=== PATIENT | male | born 1970 | race Caucasian/White ===

== ENCOUNTER 2019-07-03 07:58 | Inpatient (IN) ==
[2019-07-03] MEDS ORDERED: cefTRIAXone 2,000 MG in Water for inj. (sterile) 20 ML IVP SCH (11:00)
[2019-07-03 11:06] LABS: ABG Base Excess 0 mEq/L (-2 to 3); ABG HCO3 27 mEq/L (21-27); ABG Oxygen Saturation 97 % (95-98); ABG PCO2 52 mmHg (35-45); ABG PH 7.32 pH Units (7.32-7.45); ABG PO2 99 mmHg (85-104); ABG TCO2 29 mEq/L (20-26); Blood Gas Modality AF; Blood Gas PEEP 5 cm H2O; Blood Gas VT 500 cc
[2019-07-03] MEDS: FentaNYL (PF) 1,000 MCG in 0.9 % Sodium Chloride 80 ML IVC SCH ×3 (11:13→21:39)
[2019-07-03] MEDS ORDERED: Naloxone 0.4 MG/ML INJ IVP PRN (11:15)
[2019-07-03] MEDS ORDERED: Artificial Tears SOLN 15 ML BOTTLE BOTH EYES PRN (11:15)
[2019-07-03 11:18] LABS: Basophils % 0.3 %; Eosinophils # 0.1 K/mcL (0.0-0.6); Eosinophils % 0.6 %; Hematocrit 46.3 % (37.5-50.1); Hemoglobin 15.7 g/dL (12.9-16.9); Immature Granulocytes % 0.3 % (0-4); Lymphocytes # 2.5 K/mcL (0.6-4.6); Lymphocytes % 22.9 %; Mean Corpuscular HGB Conc 33.9 g/dL (31.6-35.5); Mean Corpuscular Hemoglobin 30.3 pg (28.0-33.3); Mean Corpuscular Volume 89.4 fL (83.0-100.0); Mean Platelet Volume 10.4 fL (9.4-12.4); Monocytes # 0.8 K/mcL (0.0-1.3); Monocytes % 7.7 %; Neutrophils # 7.4 K/mcL (1.6-8.9); Platelet Count 203 K/mcL (140-400); Red Blood Count 5.18 M/mcL (4.19-5.50); Red Cell Distribution Width 13.2 % (11.5-14.5); Segmented Neutrophils % 68.2 %; White Blood Count 10.9 K/mcL (4.3-11.1)
[2019-07-03] MEDS ORDERED: Albuterol 2.5 MG/3 ML NEBULIZER IH PRN (11:22)
[2019-07-03 11:26] LABS: INR 1.1; Prothrombin Time 12.1 Seconds (9.4-12.1)
[2019-07-03 11:28] LABS: Activated Partial Thrombo Time 48.1 Seconds (26.0-36.0)
--- NOTE | 2019-07-03 11:28 | Infectious Disease Consult ---
Infectious Disease-Consult - Encounter Date/Time Date of Encounter: 07/03/19 Time of Encounter: 11:26 - Data of Consult Patient: new to practice Reason for consult: Sepsis, AMS Consult date: 07/03/19 Requesting Physician: Cisco Blanchard Primary Care Provider: PCP NONE - HPI HPI: Mr. Liriano is a 49-year-old male with past medical history of GERD, headache, hypertension, and polysubstance abuse. The patient was admitted to the hospital 07/03/19 for altered mental status. We are consulted 07/03/19 for further workup and treatment recommendation for sepsis and altered mental status. Briefly, the patient is a 49-year-old male with past medical history as stated above. The patient's currently intubated and sedated, therefore, all of the information is obtained from medical record. Apparently, the patient presented to an [facility] emergency department with complaints of altered mental status, agitation, and confusion. Upon arrival, he had a low-grade temp of 100.2. He was tachycardic, tachypneic, and had hypertension. But blood cell count was 13,000 with neutrophilic predominance. Lactic acid and renal function were normal. Urinalysis was negative for pyuria. Urine drug screen was positive for methamphetamines, benzos, and Suboxone. Blood alcohol and acetaminophen levels were normal. Troponin was negative. He had a CT of the head that was negative. The patient became acutely combative and was subsequently intubated. History is reviewed here for further evaluation and treatment. Since admission here, the patient is afebrile and hemodynamically stable. Laboratory studies reveal a normal white blood cell count here. Chest x-ray shows a small left pleural effusion with atelectasis. Repeat blood cultures and additional labs are pending. Currently, he is on vancomycin, Rocephin, and acyclovir. We have been asked to evaluate and make further recommendations. During my exam today, the patient is evaluated in the presence of nursing staff. He is heavily sedated and intubated and is therefore unable to provide me with any information regarding the events leading up to this hospitalization. Review of systems unobtainable. - ROS Review of Systems: Review of systems unobtainable due to the patient's current mental status. - Results CBC & Chem 7: 07/06/19 03:05 07/06/19 03:05 - Exam Exam: Head: Atraumatic, normal inspection, normocephalic. Eye: PERRLA, no scleral icterus noted. No subconjunctival hemorrhage noted. ENT: Mucous membranes moist. No odontogenic infection noted. Neck: Normal inspection, no meningismus. Respiratory: Clear to auscultation. No rales, respiratory distress, rhonchi, or wheezes noted. Cardiovascular: Regular rate and rhythm, S1 and S2 audible. No murmurs, rubs, or gallops. GI: Soft, nondistended, normal bowel sounds. NG tube to low intermittent wall suction. Richard catheter draining clear yellow urine. Extremities:No joint swelling, pedal edema, or tenderness noted. Multiple superficial scabbed lesions noted bilateral lower extremities in various stages of healing. No surrounding erythema, warmth, tenderness, or fluctuance noted. Neurological: Sedated, does not follow commands. Psychiatric: Calm, sedated. Skin: Dry, intact, warm. Normal color. No rashes. No endocarditis stigmata not ed. Allergy/AdvReac Type Severity Reaction Status Date / Time No Known Allergies Allergy Verified 07/03/19 10:28 - Assessment and Plan (1) SIRS (systemic inflammatory response syndrome) Current Visit: Yes Status: Acute The patient had three SIRS criteria with altered mental status at outside hospital. Source: Unclear. Consider non-infectious etiologies (drug use). WBC normal upon arrival to [facility]. Afebrile. Tachycardia resolved. Blood cultures drawn 07/03/19 are pending x 2 sets. SNOMED Code(s): 158667988 (2) Acute encephalopathy Current Visit: Yes Status: Acute Substance abuse vs. other. CT head negative. UDS positive for amphetamines, benzos, and suboxone. SNOMED Code(s): 88055592, 966823988 (3) Polysubstance abuse Current Visit: Yes Status: Acute UDS positive for benzos, amphetamines, and suboxone. Will check HIV, hepatitis B and C serologies. SNOMED Code(s): 597225314 - Recommendations Recommendations: Await blood cultures to finalize. Check HIV and Hepatitis B and C serologies. Check respiratory infectious panel. Await neurology recommendations. Consider LP if meningitis is on the differential, but given that his WBC normalized and fever resolved without antibiotics, bacterial meningitis very low on the differential. Discontinue Vanc, Rocephin, and acyclovir and observe off antibiotics. Past Med Surg Social Fam HX - Past Medical History Source: old records reviewed, nursing notes reviewed Medical history: asthma, GERD, hypertension Additional medical history: IbS, headaches - Past Surgical History Additional surgical history: Bilateral ankle surgery, Hernia repair, colectomy, T/A. - Social History Smoking Status: Smoker, status unknown Drug use: methamphetamine - Family History Mother History Unknown: Yes Father History Unknown: Yes Consult Discharge Plan - Plan Referrals: NONE,PCP [Primary Care Provider] - - Attending Attestation I have personally performed a face to face evaluation on this patient. I have reviewed and agree with the care plan. This is an addendum to original report dictated by Renate Apple CNP. Please refer to Renate's note for full detail. Agree with above history of present illness, review of system and physical exam findings. Assessment and plan: Sepsis likely secondary to drug overdose. Infectious etiology/encephalitis meningitis less likely based on the clinical picture but is really hard to say Acute encephalopathy likely secondary to amphetamines, benzos and Suboxone Polysubstance abuse Recommendations Await blood cultures to finalize. Check HIV and Hepatitis B and C serologies. Check respiratory infectious panel. Await neurology recommendations. Consider LP if meningitis is on the differential, but given that his WBC normal ized and fever resolved without antibiotics, bacterial meningitis very low on the differential. Discontinue Vanc, Rocephin, and acyclovir and observe off antibiotics. Discussed with Dr. Rosario
--- NOTE | 2019-07-03 11:29 | Internal Med History&Physical ---
Date of Encounter: 07/03/19 Time of Encounter: 10:30 Internal Medicine - H&P: HPI Chief complaint: acute encephalopathy; possibe meningitis; NSTEMI Admitted From: Hospital to Hospital Transfer Plans for Post Hospital Care: Home History of present illness: Mr. VITALE is a 49 year old male who presents in direct transfer from [facility] in [place], [place]. I received a call this morning requesting transfer for concerns of possible meningitis, acute encephalopathy, and NSTEMI, all most likely secondary to drugs of abuse. Patient presented there acutely combative, hallucinating, agitated, and encephalopathic according to the ER staff. He had a fever of 100.5 degrees Fahrenheit. Because of concern for possible withdrawal and/or further deterioration, he was intubated in the ER and proceeded to have workup. Workup revealed normal CT of the head per verbal report. He did have an elevated white count of 13,000. Urine drug screen was positive for methamphetamine, benzodiazepines, and Buprenorphine. Cocaine was negative on UDS, however. There was some clinical concern by the ER staff that he may be suffering from meningoencephalitis. I asked them to perform a lumbar puncture, and they said they are unable to do so there because of lack of laboratory support for CSF analysis. They tried to send patient to [facility] but they do not have any Infectious Disease consult on staff. Therefore, a transfer request was made to send patient to [place] for ongoing care. I requested that the ER physician start antibiotics empirically if there was any concern for any meningoencephalitis. Specifically, I requested that she administer a dose of vancomycin, Rocephin 2 g, and acyclovir, all IV and prior to transfer to [place]. Unfortunately, patient arrived here and did not receive any antibiotics whats oever, as per my discussions with the transport team. Per my discussions with the ER staff, he did have blood cultures drawn there. Once he arrived, I ordered some STAT labs and medications, including the above aforementioned antibiotics. He was noted to have significant bloody drainage from his NG tube, and we, therefore, stopped his heparin drip for now until we can further proceed with workup. His initial troponin there was normal at less than 0.056. However, repeat troponin was elevated at 1.3 per my discussions with the ER staff. I did order stat EKG here which was unremarkable and did not show any acute ischemic changes. Currently, patient is sedated and I am unable to obtain any history from him whatsoever. History was obtained from my verbal discussion with the ER staff at [facility] and limited transport records they sent. Furthermore, the history was obtained from transport team as well, where they confirmed for me that he did not receive any antibiotics prior to transfer. Past Med Surg Social Fam HX - Past Medical History Source: other (limited [facility] records) Medical history: COPD, hypertension Psychiatric history: other (suspected but unknown) - Past Surgical History Additional surgical history: unkown, but he has visible old scars along his lower abdomen, neck, face - Social History Smoking Status: Unknown if ever smoked Alcohol use: unknown Drug use: IV Drug Use - Family History Mother History Unknown: Yes Father History Unknown: Yes Internal Medicine - H&P: Meds Allergy/AdvReac Type Severity Reaction Status Date / Time No Known Allergies Allergy Verified 07/03/19 10:28 ROS unobtainable: due to endotracheal tube - Constitutional Exam: intubated, sedated - Head Head exam: Present: atraumatic, normal inspection Additional comments: old scars along neck/face - Eye Eye exam: Present: PERRL. Absent: scleral icterus - ENT ENT exam: Present: mucous membranes dry, normal exam, normal oropharynx Additional comments: ETT/NG in place - Neck Neck exam general surgery: Present: full ROM, supple, trachea midline. Absent: tenderness, nuchal rigidity, thyromegaly - Respiratory Respiratory exam: Present: prolonged expiratory phase, rhonchi, wheezes. Ab sent: accessory muscle use, chest wall tenderness, rales, respiratory distress - Cardiovascular Cardiovascular exam: Present: RRR, +S1, +S2. Absent: diastolic murmur, systolic murmur - GI/Abdominal GI/Abdominal exam: Present: normal bowel sounds, soft. Absent: guarding, hepatomegaly, mass, rebound, splenomegaly, tenderness - Extremities Exam Extremities exam: Present: full ROM, normal capillary refill, warm, radial pulses palpable and symmetrical. Absent: calf tenderness, pedal edema, tenderness - Back Exam Back exam: Absent: rash noted - Neurological Exam Additional comments: sedated, responds to pain - Psychiatric Additional comments: unable to assess due to sedation - Skin Skin exam: Present: dry, warm Additional comments: multiple scab/ulcer wounds throughout extremities and some on trunk (?skin pooping) Internal Med - H&P Results - Labs CBC & Chem 7: 07/03/19 11:00 07/03/19 11:00 Labs: Short CBC 07/03/19 Range/Units 11:00 WBC 10.9 (4.3-11.1) K/mcL Hgb 15.7 (12.9-16.9) g/dL Hct 46.3 (37.5-50.1) % Plt Count 203 (140-400) K/mcL Neutrophils # 7.4 (1.6-8.9) K/mcL I reviewed the labs from [facility] and include the following: WBC 13.2 Hemobin 17.1 Hematocrit 49.9 Platelets 263 Sodium 142 Potassium 3.4 Chloride 103 Carbon dioxide 23 BUN 11 Gluocse 192 Creatinine 1.22 Salicylates less than 2.8 UDS positive for amphetamines, benzodiazepines, and Buprenorphine. Troponin negative, second one was 1.35 - ABG Interpretation ABG results: 07/03/19 11:00 ABG pH 7.32 ABG pCO2 52 H ABG pO2 99 ABG HCO3 27 ABG Total CO2 29 H ABG O2 Saturation 97 ABG Base Excess 0 - EKG Data -: EKG Interpreted by Myself - EKG Data Prior EKG available for review: no EKG comments: 07/03/19 11:57 STAT EKG here at [place]: no acute ischemic changes noted - Impressions ITS Impressions Chest X-Ray 07/03/19 11:10 IMPRESSION: 1. The endotracheal tube tip is located 8.4 cm above the ronda. This could be advanced approximately 3 cm for more optimal placement. 2. The NG tube tip and side port are noted in the gastric fundus. 3. Small left pleural effusion with associated left basilar atelectasis. D/ / Johnny Kinsey MD / Johnny Kinsey MD Interpreting Provider: Johnny Kinsey MD - Assessment and Plan (1) Acute encephalopathy Current Visit: Yes Status: Acute Assessment and plan: 1. Currently intubated and sedated. 2. Consult pulmonology for vent management assistance. 3. Likely due to polysubtance abuse. 4. Low suspicion for meningoencephalitis; will consult anesthesia, neurology, and/or IR for LP. 5. Vancomycin, Rocephin, and Acyclovir administered per pharmacy upon arrival to ICU. 6. Repeat UDS ordered upon arrival. (2) Meningoencephalitis Current Visit: Yes Status: Suspected Assessment and plan: 1. Consult for LP as above. 2. Antibiotics and Acyclovir already administered upon arrival to ICU. 3. Consult ID +/- neurology. (3) IVDU (intravenous drug user) Current Visit: Yes Status: Acute Assessment and plan: 1. Repeat UDS. 2. Supportive measures with vent and current sedation. 3. Monitor for withdrawal. (4) Non-ST elevation NM (NSTEMI) Current Visit: Yes Status: Acute Assessment and plan: 1. Likely due to drugs of abuse. 2. STAT ECHO ordered; EKG here negative for ischemia thus far. 3. Heparin and ASA initiated at [facility]; heparin stopped upon arrival due to bloody drainage from NG tube. 4. Trend troponins, EKG's. 5. Consult cardiology. 6. Avoid BB for concerns of cocaine abuse and other drugs that may lead to unopposed alpha agonist activity. (5) Multiple wounds of skin Current Visit: Yes Status: Acute Assessment and plan: 1. Likely due to skin popping and/or skin abscess from IVDA; clinical concern for MRSA. 2. MRSA precautions. 3. MRSA screen and wound culture ordered. 4. Antibiotics as above. (6) DVT prophylaxis Current Visit: Yes Status: Acute Assessment and plan: 1. EPCD's.
[2019-07-03 11:39] LABS: Alanine Aminotransferase 46 Units/L (7-52); Albumin 4.1 g/dL (3.5-5.7); Albumin/Globulin Ratio 1.3 (1.1-2.2); Alkaline Phosphatase 59 Units/L (34-104); Aspartate Amino Transferase 52 Units/L (13-39); BUN/Creatinine Ratio 13 (6-26); Bilirubin,Direct 0.3 mg/dL (0.0-0.2); Bilirubin,Indirect 0.4 mg/dL (0.0-1.2); Bilirubin,Total 0.7 mg/dL (0.3-1.0); Blood Urea Nitrogen 11 mg/dL (6-20); Calcium 8.8 mg/dL (8.6-10.3); Carbon Dioxide 29 mEq/L (23-29); Chloride 107 mEq/L (98-107); Globulin 3.1 g/dL (2.4-3.5); Glucose 122 mg/dL (70-105); Osmolality,Calculated 295 (280-300); Potassium 3.8 mEq/L (3.5-5.1); Sodium 142 mEq/L (136-145); Total Protein 7.2 g/dL (6.4-8.9); Troponin I 0.68 ng/mL (< 0.04); eGFR For African Americans > 60 (> 60); eGFR For Non-African Americans > 60 (> 60)
--- NOTE | 2019-07-03 11:39 | Pulmonology Consult Note ---
<Serafin Cross W - Last Filed: 07/03/19 13:04> Date of Encounter: 07/03/19 Medications and Allergies Allergy/AdvReac Type Severity Reaction Status Date / Time No Known Allergies Allergy Verified 07/03/19 10:28 All Systems: The remainder of the systems were reviewed and are negative Physical Examination Vital Signs: Vital Signs, Last 4 Hours Temp Pulse Resp BP Pulse Ox 07/03/19 11:00 98.2 F 85 16 146/108 99 07/03/19 10:36 98.2 F 85 16 146/108 99 Ventilator Settings Ventilator Settings: Ventilator Settings, Last 8 Hours Ventilator Tidal Volume 500 Setting Ventilator Respiratory Rate 16 Setting Actual Respiratory Rate 16 Positive End Expiratory 5 Pressure Peak Inspiratory Airway 18 Pressure Results - Laboratory Findings CBC and BMP: 07/03/19 11:00 07/03/19 11:00 ABG ABG pH 7.32 pH Units (7.32-7.45) 07/03/19 11:00 ABG pCO2 52 mmHg (35-45) H 07/03/19 11:00 ABG pO2 99 mmHg (85-104) 07/03/19 11:00 ABG O2 Saturation 97 % (95-98) 07/03/19 11:00 PT/INR, D-dimer PT 12.1 Seconds (9.4-12.1) 07/03/19 11:00 Abnormal lab findings: Abnormal lab results APTT 48.1 Seconds (26.0-36.0) H 07/03/19 11:00 ABG pCO2 52 mmHg (35-45) H 07/03/19 11:00 ABG Total CO2 29 mEq/L (20-26) H 07/03/19 11:00 Glucose 122 mg/dL (70-105) H 07/03/19 11:00 Direct Bilirubin 0.3 mg/dL (0.0-0.2) H 07/03/19 11:00 AST 52 Units/L (13-39) H 07/03/19 11:00 Troponin I 0.68 ng/mL (< 0.04) H* 07/03/19 11:00 - Microbiology Findings Microbiology Findings: Microbiology, Last 48 Hours 07/03/19 11:00 Blood Culture - Preliminary Peripheral Venipuncture Culture is incubating and being continuously monitored for growth. Final report to follow. 07/03/19 11:00 Blood Culture - Preliminary Peripheral Venipuncture Culture is incubating and being continuously monitored for growth. Final report to follow. - Clinical Findings Intake & Output: Intake & Output 07/02/19 07/03/19 07/03/19 23:59 07:59 15:59 Intake Total 385 / 385 Output Total 400 / 400 Balance - Weight 99.3 kg Consult Discharge Plan - Plan Referrals: NONE,PCP [Primary Care Provider] - - Attending Attestation I examined this patient and my medical decision-making was reviewed with the Resident Physician. I agree with the documented findings, disposition and treatment plan as described except to the extent set forth below. We indep endently had [id number] contact with the patient Patient seen and examined at bedside Labs, radiology, chart personally reviewed. History was gathered entirely from the medical record as well as conversation dramatically with the admitting hospitalist Dr Mccracken - I did attempt to call the next of kin the patient's father but was directed to voice mail PHYSICAL METALLURGIST: Patient presenting with toxic encephalopathy which is consistent with intentional toxidrome from polydrug overdose. He is afebrile at this time. I believe that the likelihood of meningitis is very low he has been covered empirically with antibiotics formal neurology consultation could be helpful. I do recommend checking acetaminophen and salicylate levels Pulm: Patient had been intubated because of amount of sedation required to keep patient call and he has a mild respiratory acidosis-increased his minute ventilation to accommodate for this he will need to be sedated today because he is not a candidate for spontaneous regional because of acute intoxication Cards: NSTEMI likely demand in the context of methamphetamine use for recommend echocardiogram to assess for any regional wall motion abnormalities. GI: GI prophylaxis should be given while on vent Nutrition: Nothing by mouth for now Renal: No evidence of acute kidney injury but would check CPK levels to rule out any evidence of rhabdomyolysis on physical examination there is no evidence of compartment syndrome of any of the extremities. UOP Monitored, Cont to Trend sCr and monitor Electrolytes. ID: There is concern for encephalitis given acute encephalopathy as well as mild fever and the outside emergency department which I think is much were reasonably explained by drug intoxication he has been covered empirically for meningitis which I suspect can be stopped Heme/Onc: DVT prophylaxis to be given Endo: Glucose Monitored Integ/MSK: Skin Care per routine ICU Nursing Protocol to prevent ulcers. Lines: All lines examined without evidence of infection : Dispo: Monitor in ICU CODE: Full <Phillip Hernández - Last Filed: 07/03/19 13:51> Date of Encounter: 07/03/19 Time of Encounter: 11:37 Assessment and Plan (1) Acute encephalopathy Current Visit: Yes Status: Acute Patient was found to be aggressive and agitated upon arrival at [facility] Due to level of agitation and concerns for withdrawals patient was intubated and sedated Agitation likely due to polysubstance abuse with a low suspicion of meningitis as patient no longer has fever and white count is not elevated -Currently intubated and sedated -Vancomycin, Rocephin, and acyclovir therapy for possible meningitis -Neurology consulted (2) Polysubstance abuse Current Visit: Yes Status: Acute Urine drug screen positive for benzodiazepines, methamphetamine, and Suboxone Most likely could be cause of patient's acute encephalopathy -Patient currently sedated and intubated -We will monitor for signs of withdrawal and initiate CIWA-B protocol if needed (3) Non-ST elevation FL (NSTEMI) Current Visit: Yes Status: Acute Patient with reported elevated troponins at [facility] Most likely due to demand ischemia in setting of polysubstance abuse and acute agitation/restraints at [facility] Troponin of 0.68 with repeat 2 hours later of 0.65 -Continue to trend -Echo ordered -Cardiology consulted (4) Multiple wounds of skin Current Visit: Yes Status: Acute Action with multiple small scabbing wounds over the lower and upper extremities -MRSA screening initiated -Blood cultures pending -Currently on vancomycin (5) DVT prophylaxis Current Visit: Yes Status: Acute SCDs History of Present Illness Consult date: 07/03/19 History of present illness: 49M with significant pmh of COPD, drug abuse and HTN presented as a direct admit from [facility] ER due to possible meningitis, acute encephalopathy, and NSTEMI. According to ER staff at [facility] patient presented very combative, hallucinating, and agitated with a fever. Patient was intubated at that time due to agitation and fear of possible withdrawals. Urine drug screen at [facility] with positive methamphetamine, benzodiazepines, and Suboxone. Patient was transferred due to possible signs of meningitis and inability to get CSF analysis at that location. After presenting to the ICU patient was started on vancomycin, Rocephin, and acyclovir. Patient lab results significant for a normal white count, and significant CMP, and a troponin of 0.68 in the setting of drug abuse and combative activity. CK ordered will follow for results. Vital signs on admission of temperature 98.2, pulse rate of 85, respiratory rate is 16, blood pressure 146/108, and O2 saturation of 99% on vent. Vent settings of FiO2 40%, tidal volume 500, PEEP of 5, and respiratory rate of 16. Patient continues to be sedated on propofol, fentanyl, and the diazepam at this time. Past Med Surg Social Fam HX - Past Medical History Medical history: asthma, GERD, hypertension Additional medical history: IbS, headaches - Past Surgical History Additional surgical history: Bilateral ankle surgery, Hernia repair, colectomy, T/A. - Social History Smoking Status: Smoker, status unknown Drug use: methamphetamine - Family History Mother History Unknown: Yes Father History Unknown: Yes ROS unobtainable: due to endotracheal tube All Systems: The remainder of the systems were reviewed and are negative Physical Examination General appearance: other (ET tube in place patient is sedated.) Eyes: nonicteric ENT: other (ET tube in place) Neck: no lymphadenopathy, no JVD Effort: normal Inspection: normal Auscultation: bilateral: clear Cardiovascular: regular rate and rhythm Gastrointestinal: normoactive bowel sounds, soft, non-distended Integumentary: other (Multiple small lesions are present on the bilateral lower and upper extremities. nonbleeding and scabbing present) Extremities: no edema, pulses normal Musculoskeletal: no deformities unable to assess due to mental status Results - Laboratory Findings CBC and BMP: 07/03/19 11:00 07/03/19 11:00 ABG ABG pH 7.32 pH Units (7.32-7.45) 07/03/19 11:00 ABG pCO2 52 mmHg (35-45) H 07/03/19 11:00 ABG pO2 99 mmHg (85-104) 07/03/19 11:00 ABG O2 Saturation 97 % (95-98) 07/03/19 11:00 PT/INR, D-dimer PT 12.1 Seconds (9.4-12.1) 07/03/19 11:00 Abnormal lab findings: Abnormal lab results APTT 48.1 Seconds (26.0-36.0) H 07/03/19 11:00 ABG pCO2 52 mmHg (35-45) H 07/03/19 11:00 ABG Total CO2 29 mEq/L (20-26) H 07/03/19 11:00 - Clinical Findings Intake & Output: Intake & Output 07/02/19 07/03/19 07/03/19 23:59 07:59 15:59 Weight 99.3 kg
[2019-07-03] MEDS: Ipratropium/Albuterol Neb 3 ML IH SCH ×4 (11:59→23:56)
[2019-07-03] MEDS ORDERED: Acyclovir 750 MG in D5% in Water 250 ML IVPB SCH (12:00)
[2019-07-03] MEDS ORDERED: Perflutren Lipid Microsphere 1.3 ML in 0.9 % Sodium Chloride 8.7 ML IVP ONE (12:00)
[2019-07-03] MEDS ORDERED: Perflutren Lipid Microsphere 2 ML VIAL ONE (12:05)
[2019-07-03] MEDS: Artificial Tears SOLN 15 ML BOTTLE BOTH EYES SCH ×4 (12:25→23:03)
[2019-07-03] MEDS: 0.9 % Sodium Chloride 1,000 ML IVC SCH ×2 (12:25→21:45)
--- NOTE | 2019-07-03 12:46 | Cardiology Consult Note ---
Date of Encounter: 07/03/19 Time of Encounter: 13:22 Assessment and Plan (1) Non-ST elevation PA (NSTEMI) Current Visit: Yes Status: Acute Patient has had elevated troponins at 0.056 > 1.35 > 0.68. Electrocardiogram was unremarkable for acute ischemic changes. UDS was negative for cocaine but positive for methamphetamines, benzodiazepines, buprenorphine. -We will not add any medications at this time -We will await results of echocardiogram. -Continue to support hemodynamically. -Continue to provide respiratory support. -Continue to hold heparin for now, due to sanguinous drainage from NG tube. Discussion w patient/family: The assessment and plan as outlined above was discussed with the patient and/or family members who expressed understanding and agreement. All questions were answered. Thank you for involving us in the care of your patient. Please call with any questions. History of Present Illness Consult date: 07/03/19 Requesting physician: Cisco Blanchard Consult reason: NSTEMI, IVDA Chief complaint: acute encephalopathy, NSTEMI History of present illness: Mr. VITALE is a 49 year old male presenting as direct transfer from [facility] for NSTEMI in context of possible meningitis, acute encephalopathy and IV drug abuse. Patient arrived to [facility] very combative, hallucinating, agitated, and encephalopathic. He had elevated temperature of 100.5 F. He is currently intubated. At ED, there was normal CT head reported from [facility]. CXR was unremarkable from cardiac standpoint. There was a small left pleural effusion with associated left basilar atelectasis. UDS was positive for methamphetamine, benzodiazepines, and buprenorphine. Troponin at [facility] was 0.056 > 1.34. Repeat troponin here was 0.68. ECG was unremarkable without acute ischemic changes. Heparin drip is currently held due to bloody drainage from NG tube. Currently on vancomycin, ceftriaxone, and acyclovir. No antiarrhythmics or antihypertensive agents currently being administered. Patient was unable to cooperate with exam due to sedation and intubation. No family was present in room. Echocardiogram is ordered. Repeat ECG is ordered. Blood, sputum, wound cultures pending. Infectious Disease, Neurology, and Pulmonology are also consulted. Past Med Surg Social Fam HX - Past Medical History Medical history: COPD, hypertension Additional medical history: IbS, headaches Psychiatric history: other (suspected but unknown) - Past Surgical History Additional surgical history: unkown, but he has visible old scars along his lower abdomen, neck, face - Social History Smoking Status: Unknown if ever smoked Alcohol use: unknown Drug use: IV Drug Use - Family History Mother History Unknown: Yes Father History Unknown: Yes Medications and Allergies Allergy/AdvReac Type Severity Reaction Status Date / Time No Known Allergies Allergy Verified 07/03/19 10:28 ROS unobtainable: due to endotracheal tube All Systems Review: The remainder of the systems were reviewed and are negative Physical Examination Vital Signs, Last 4 Hours Temp Pulse Resp BP Pulse Ox 07/03/19 11:00 98.2 F 85 16 146/108 99 07/03/19 10:36 98.2 F 85 16 146/108 99 Other: GENERAL: sedated, intubated. Did not awake to voice or physical stimuli SKIN: multiple small scabs over extremities and trunk, multiple tattoos present HENT: normocephalic, atraumatic. ETT in place. NG tube shows sanguinous drainage. Moist mucosa EYES: conjunctival injection present L>R. Anicteric. Pupils equal and reactive to light bilaterally NECK: normal carotid pulses present CV: regular rate and rhythm, no murmurs present. RESPIRATORY: clear to auscultation bilaterally. Ventilated breath sounds. No wheezes, rhonchi, rales heard. GI: soft, nondistended. Normal bowel sounds present EXTREMITIES: peripheral pulses 2+/4. Nonedematous. Acyanotic. Warm, dry. Capillary refill <2 sec Results 07/03/19 11:00 07/03/19 11:00 Lab Results 07/03/19 07/03/19 07/03/19 11:00 11:00 11:00 WBC 10.9 Hgb 15.7 Hct 46.3 Plt Count 203 INR 1.1 APTT 48.1 H Sodium 142 Potassium 3.8 Chloride 107 Carbon Dioxide 29 BUN 11 Creatinine 0.84 Glucose 122 H Calcium 8.8 Total Bilirubin 0.7 AST 52 H ALT 46 Alkaline Phosphatase 59 Troponin I 0.68 H* Consult Discharge Plan - Plan Referrals: NONE,PCP [Primary Care Provider] -
--- NOTE | 2019-07-03 13:39 | Neurology - Consult Note ---
Date of Encounter: 07/03/19 Time of Encounter: 13:30 Assessment and Plan (1) Acute encephalopathy Current Visit: Yes Status: Acute Acute Encephalopathy Most likely 2/2 polysubstance abuse but meningitis and/or infection also in the differential Known polysubstance abuse hx; UDS + meth, BZD's and suboxone But also had SIRS criteria x3 at outside hospital with fevers, leukocytosis and tachycardia -sputum and blood cultures pending; ID seeing in c/s and recommending d/c of ABX with low suspicion for MAINTENANCE MECHANIC infection; we recommend continuing Acyclovir for now. -not recommending LP at this time. Should leukocytosis, and/or fevers return, seizures develop or should decompensation occur then consider LP -otherwise continue with medical and supportive care -neurology will continue to follow; no further recommendations at this time History of Present Illness Chief complaint: AMS HPI: Mr. VITALE is a 49 year old male with a PMH of COPD, HTN, and polysubstance abuse who presents to [facility] from [facility] for concerns for a MAINTENANCE MECHANIC infection as [facility] is unable to perform LP and/or perform CSF analysis. The patient is intubated and sedated at the time of my assessment. He is unable to provide any history as such, so all information was obtained from chart review and provider to provider report. It is reported that the patient was at home and developed an acute episode of hallucinations, delirium and combative behavior prompting evaluation at [facility] ED. While in the ED he had 3 SIRS criteria with tachycardia, fevers of 100.5 and leukocytosis of wbc of 13,000. A UDS was ob tained while there and was positive for methamphetamines, suboxone, and BZD's. Since arriving to [facility] the leukocytosis has resolved and he is afebrile. It should be noted that he had not received any ABX or antiviral tx prior to arrival at [facility]. CT head from [facility] negative for acute intracranial abnormality. The neurological evaluation is limited by patients current state. Past Med Surg Social Fam HX - Past Medical History Medical history: COPD, hypertension Additional medical history: IbS, headaches Psychiatric history: other (suspected but unknown) - Past Surgical History Additional surgical history: unkown, but he has visible old scars along his lower abdomen, neck, face - Social History Smoking Status: Unknown if ever smoked Alcohol use: unknown Drug use: IV Drug Use - Family History Mother History Unknown: Yes Father History Unknown: Yes Medications and Allergies Allergy/AdvReac Type Severity Reaction Status Date / Time No Known Allergies Allergy Verified 07/03/19 10:28 ROS unobtainable: due to endotracheal tube, due to mental status All Systems: The remainder of the systems were reviewed and are negative Physical Examination - Vital Signs Vital Signs: Initial Vital Signs Temp Pulse Resp BP Pulse Ox 98.2 F 85 16 146/108 99 07/03/19 10:36 07/03/19 10:36 07/03/19 10:36 07/03/19 10:36 07/03/19 10:36 - Exam Exam: Examination: Limited by patients altered mental state General Examination: *CONSTITUTIONAL: sedated and intubated *GENERAL APPEARANCE OF PATIENT appears older than stated age and unhealthy *EYES: pupils equal, round, reactive to light and accommodation, conjunctiva clear without masses or ulcerations, fundi normal. *CARDIOVASCULAR: RRR, no peripheral edema, distal temperature normal, dorsalis pedis pulses normal. Refer to vital signs * MUSCULOSKELETAL: *GAIT AND STATION: Deferred *ASSESSMENT OF MUSCLE STRENGTH IN THE UPPER AND LOWER EXTREMITIES unable to illicit any movement during exam Neurological: *ORIENTATION sedated *LANGUAGE AND FUNCTION no significant aphasia or dysarthia was noted. *MENTAL attention span and concentration normal. *CN II optic fundi were normal, no papilledema noted. *CN III,IV, Pupils are sluggish but are equal, round and reactive to light and accommodation *CN VII shows normal facial movement symmetrically, upper and lower bilaterally *REFLEXES: deep tendon reflexes were diminisheddiffusely, no pathological reflexes were noted. Results - Laboratory Findings CBC and BMP: 07/03/19 11:00 07/03/19 11:00 Abnormal lab findings: Abnormal lab results APTT 48.1 Seconds (26.0-36.0) H 07/03/19 11:00 ABG pCO2 52 mmHg (35-45) H 07/03/19 11:00 ABG Total CO2 29 mEq/L (20-26) H 07/03/19 11:00 Glucose 122 mg/dL (70-105) H 07/03/19 11:00 Lactic Acid < 0.2 mmol/L (0.5-2.2) L 07/03/19 12:43 Direct Bilirubin 0.3 mg/dL (0.0-0.2) H 07/03/19 11:00 AST 52 Units/L (13-39) H 07/03/19 11:00 Troponin I 0.68 ng/mL (< 0.04) H* 07/03/19 11:00 Consult Discharge Plan - Plan Referrals: NONE,PCP [Primary Care Provider] -
[2019-07-03 14:01] LABS: Acetaminophen < 10 mcg/mL (10-20); Salicylate < 2.5 mg/dL (15.0-30.0)
--- NOTE | 2019-07-03 14:02 | Electrocardiograph Report ---
[address] [address] Test Date: 2019-07-03 Pat Name: APRIL VITALE Department: 109 Room: 02 Gender: M Tail Ripper: [facility] : 1970 Requested By: Cisco Blanchard Order Number: [id number] Reading MD: Filippo Laws Measurements Intervals [place] Rate: 88 P: 11 [place]: 171 QRS: -2 QRSD: 101 T: 19 QT: 377 QTc: 423 Interpretive Statements SINUS RHYTHM Electronically Signed On 07-03-2019 14:00:50 EDT by Filippo Laws
[2019-07-03 15:47] LABS: Hepatitis B Surface Antigen Nonreactive (Nonreactive)
[2019-07-03] MEDS ORDERED: 0.9 % Sodium Chloride 1,000 ML IVC ONE (16:12)
[2019-07-03 16:17] LABS: HIV-1&2 Antibody & p24 Ag Nonreactive (Nonreactive)
[2019-07-03 16:19] LABS: Hepatitis A Antibody IgM Nonreactive (Nonreactive); Hepatitis B Core IgM Nonreactive (Nonreactive)
[2019-07-03 16:44] LABS: Bilirubin,Urine Negative (Negative); Blood,Urine Negative (Negative); Clarity,Urine Cloudy (Clear); Color,Urine Yellow (Yellow); Glucose,Urine (UA) Normal (Normal); Ketones,Urine Negative (Negative); Leukocyte Esterase,Urine Negative (Negative); Nitrite,Urine Negative (Negative); Protein,Urine Negative (Neg-Trace); Specific Gravity,Urine 1.017 (1.010-1.025); Urobilinogen,Urine Normal (Normal)
[2019-07-03 16:45] LABS: Bacteria,Urine None Seen per hpf (None-Few); Hyaline Casts,Urine None Seen per lpf (None-Few); Squamous Epithelial Cell,Urine Few per lpf (None-Few); WBC,Urine 0-3 per hpf (0-3)
[2019-07-03 16:58] LABS: Amphetamine Screen,Urine Positive ng/mL (Cutoff=1000); Barbiturate Screen,Urine Negative ng/mL (Cutoff=200); Benzodiazepines Screen,Urine Positive ng/mL (Cutoff=200); Cannabinoid Screen,Urine Negative ng/mL (Cutoff = 50); Cocaine Screen,Urine Negative ng/mL (Cutoff= 300); Opiate Screen,Urine Negative ng/mL (Cutoff=300); Phencyclidine Screen,Urine Negative ng/mL (Cutoff=25)
[2019-07-03 18:11] LABS: Hepatitis C Virus Antibody Reactive (Nonreactive)
[2019-07-03 18:57] LABS: Adenovirus Not Detected (Not Detect); Bordetella Pertussis Not Detected (Not Detect); Chlamydophila pneumoniae Not Detected (Not Detect); Coronavirus 229E Not Detected (Not Detect); Coronavirus HKU1 Not Detected (Not Detect); Coronavirus NL63 Not Detected (Not Detect); Coronavirus OC43 Not Detected (Not Detect); Human Metapneumovirus Not Detected (Not Detect); Human Rhinovirus/Enterovirus Not Detected (Not Detect); Influenza A Subtype 2009 H1 Not Detected (Not Detect); Influenza A Untypeable Not Detected (Not Detect); Influenza B Not Detected (Not Detect); Mycoplasma pneumoniae Not Detected (Not Detect); Parainfluenza Virus 1 Not Detected (Not Detect); Parainfluenza Virus 2 Not Detected (Not Detect); Parainfluenza Virus 3 Not Detected (Not Detect); Parainfluenza Virus 4 Not Detected (Not Detect); Respiratory Syncytial Virus Not Detected (Not Detect)
[2019-07-03] MEDS: Chlorhexidine Rinse 15 ML MOUTHWASH MM SCH (21:08)
[2019-07-04] MEDS: 0.9 % Sodium Chloride 1,000 ML IVC SCH ×3 (01:22→21:38)
[2019-07-04] MEDS: FentaNYL (PF) 1,000 MCG in 0.9 % Sodium Chloride 80 ML IVC SCH ×5 (02:09→22:25)
[2019-07-04] MEDS: Artificial Tears SOLN 15 ML BOTTLE BOTH EYES SCH ×6 (03:16→23:00)
[2019-07-04] MEDS: Ipratropium/Albuterol Neb 3 ML IH SCH ×6 (03:42→23:03)
[2019-07-04 03:45] LABS: Alanine Aminotransferase 36 Units/L (7-52); Albumin 3.2 g/dL (3.5-5.7); Albumin/Globulin Ratio 1.2 (1.1-2.2); Alkaline Phosphatase 47 Units/L (34-104); Aspartate Amino Transferase 44 Units/L (13-39); BUN/Creatinine Ratio 9 (6-26); Bilirubin,Direct 0.2 mg/dL (0.0-0.2); Bilirubin,Indirect 0.3 mg/dL (0.0-1.2); Bilirubin,Total 0.5 mg/dL (0.3-1.0); Blood Urea Nitrogen 11 mg/dL (6-20); Calcium 7.7 mg/dL (8.6-10.3); Carbon Dioxide 21 mEq/L (23-29); Chloride 112 mEq/L (98-107); Globulin 2.7 g/dL (2.4-3.5); Glucose 107 mg/dL (70-105); Magnesium 1.8 mg/dL (1.6-2.6); Osmolality,Calculated 296 (280-300); Potassium 3.6 mEq/L (3.5-5.1); Sodium 143 mEq/L (136-145); Total Protein 5.9 g/dL (6.4-8.9); eGFR For African Americans > 60 (> 60); eGFR For Non-African Americans > 60 (> 60)
[2019-07-04 03:53] LABS: Basophils % 0.3 %; Eosinophils # 0.2 K/mcL (0.0-0.6); Eosinophils % 1.7 %; Immature Granulocytes % 0.3 % (0-4); Lymphocytes # 1.7 K/mcL (0.6-4.6); Lymphocytes % 12.9 %; Mean Corpuscular HGB Conc 32.9 g/dL (31.6-35.5); Mean Corpuscular Hemoglobin 30.1 pg (28.0-33.3); Mean Corpuscular Volume 91.5 fL (83.0-100.0); Mean Platelet Volume 10.6 fL (9.4-12.4); Monocytes % 7.2 %; Neutrophils # 10.5 K/mcL (1.6-8.9); Platelet Count 180 K/mcL (140-400); Red Blood Count 4.48 M/mcL (4.19-5.50); Red Cell Distribution Width 13.6 % (11.5-14.5); Segmented Neutrophils % 77.6 %; White Blood Count 13.5 K/mcL (4.3-11.1)
[2019-07-04 03:54] LABS: Hemoglobin 13.5 g/dL (12.9-16.9)
[2019-07-04 05:16] LABS: ABG Base Excess -1 mEq/L (-2 to 3); ABG HCO3 26 mEq/L (21-27); ABG Oxygen Saturation 96 % (95-98); ABG PCO2 50 mmHg (35-45); ABG PH 7.32 pH Units (7.32-7.45); ABG PO2 91 mmHg (85-104); ABG TCO2 27 mEq/L (20-26); Blood Gas Modality ASSIST CONTROL; Blood Gas PEEP 5 cm H2O; Blood Gas VT 500 cc
--- NOTE | 2019-07-04 08:21 | Pulmonology Progress Note ---
<Phillip Hernández - Last Filed: 07/04/19 09:11> Date of Encounter: 07/04/19 Time of Encounter: 08:20 Assessment and Plan (1) Acute encephalopathy Current Visit: Yes Status: Acute Patient was found to be aggressive and agitated upon arrival at [facility] Due to level of agitation and concerns for withdrawals patient was intubated and sedated Agitation likely due to polysubstance abuse with a low suspicion of meningitis as patient no longer has fever and white count is not elevated Patient with elevated WBC at 13.5, diaphoretic, and with a fever of 101 this morning Chest x-ray with blunting of the left costophrenic angle in setting of patient who had recent intubation could demonstrate aspiration pneumonia -ID consulted, will follow recommendations, patient started on Zosyn to cover anaerobic bacteria -Due to signs of infection opiate be performed today, will reinitiate antibiotics if results demonstrate meningitis -Currently intubated and sedated -Neurology consulted (2) Polysubstance abuse Current Visit: Yes Status: Acute Urine drug screen positive for benzodiazepines, methamphetamine, and Suboxone Most likely could be cause of patient's acute encephalopathy -Patient currently sedated and intubated -We will monitor for signs of withdrawal and initiate CIWA-B protocol if needed (3) Non-ST elevation AR (NSTEMI) Current Visit: Yes Status: Acute Patient with reported elevated troponins at [facility] Most likely due to demand ischemia in setting of polysubstance abuse and acute agitation/restraints at [facility] Troponin of 0.68 with repeat 2 hours later of 0.65 Echo with Ef of 65% and no wall segment motion abnormalities -Troponin downtrending with latest of 0.33 -Cardiology consulted will follow recommendations (4) Multiple wounds of skin Current Visit: Yes Status: Acute Action with multiple small scabbing wounds over the lower and upper extremities -MRSA screening positive. Patient currently on a meningitis precautions -Blood and wound cultures pending -Currently on vancomycin (5) DVT prophylaxis Current Visit: Yes Status: Acute SCDs Subjective Interval history: Patient intubated and sedated Objective PUL Vital signs: Last Vital Signs Temp 101 F H 07/04/19 07:37 Pulse 97 07/04/19 06:00 Resp 16 07/04/19 07:16 BP 91/62 07/04/19 06:00 Pulse Ox 93 09/17/19 07:16 General appearance: other (Intubated and sedated) Eyes: nonicteric ENT: other (ET tube in place) Neck: no lymphadenopathy (Ears to have a horizontal scar across the midline of the throat) Effort: normal Auscultation: bilateral: clear Cardiovascular: regular rate and rhythm Gastrointestinal: soft, non-tender, non-distended Integumentary: other (Diaphoretic) Extremities: no edema, pulses normal Musculoskeletal: no deformities unable to assess due to mental status Ventilator Settings Ventilator Settings: Ventilator Settings, Last 8 Hours Ventilator Tidal Volume 500 Setting Ventilator Tidal Volume 500 Setting Ventilator Tidal Volume 500 Setting Ventilator Tidal Volume 500 Setting Ventilator Tidal Volume 500 Setting Ventilator Tidal Volume 500 Setting Ventilator Tidal Volume 500 Setting Ventilator Tidal Volume 500 Setting Ventilator Tidal Volume 500 Setting Ventilator Tidal Volume 500 Setting Ventilator Respiratory Rate 16 Setting Ventilator Respiratory Rate 16 Setting Ventilator Respiratory Rate 16 Setting Ventilator Respiratory Rate 16 Setting Ventilator Respiratory Rate 16 Setting Ventilator Respiratory Rate 16 Setting Ventilator Respiratory Rate 16 Setting Ventilator Respiratory Rate 16 Setting Ventilator Respiratory Rate 16 Setting Ventilator Respiratory Rate 16 Setting Actual Respiratory Rate 16 Actual Respiratory Rate 16 Actual Respiratory Rate 16 Actual Respiratory Rate 16 Actual Respiratory Rate 16 Actual Respiratory Rate 16 Actual Respiratory Rate 16 Actual Respiratory Rate 16 Positive End Expiratory 5 Pressure Positive End Expiratory 5 Pressure Positive End Expiratory 5 Pressure Positive End Expiratory 5 Pressure Positive End Expiratory 477 Pressure Positive End Expiratory 477 Pressure Positive End Expiratory 477 Pressure Peak Inspiratory Airway 16 Pressure Peak Inspiratory Airway 18 Pressure Peak Inspiratory Airway 19 Pressure Peak Inspiratory Airway 19 Pressure Peak Inspiratory Airway 17 Pressure Peak Inspiratory Airway 18 Pressure Peak Inspiratory Airway 19 Pressure Peak Inspiratory Airway 19 Pressure Peak Inspiratory Airway 20 Pressure Results - Laboratory Findings CBC and BMP: 07/04/19 03:00 07/04/19 03:00 ABG ABG pH 7.32 pH Units (7.32-7.45) 07/04/19 05:12 ABG pCO2 50 mmHg (35-45) H 07/04/19 05:12 ABG pO2 91 mmHg (85-104) 07/04/19 05:12 ABG O2 Saturation 96 % (95-98) 07/04/19 05:12 PT/INR, D-dimer PT 12.1 Seconds (9.4-12.1) 07/03/19 11:00 Abnormal lab findings: Abnormal lab results WBC 13.5 K/mcL (4.3-11.1) H 07/04/19 03:00 Neutrophils # 10.5 K/mcL (1.6-8.9) H 07/04/19 03:00 APTT 48.1 Seconds (26.0-36.0) H 07/03/19 11:00 ABG pCO2 50 mmHg (35-45) H 07/04/19 05:12 ABG Total CO2 27 mEq/L (20-26) H 07/04/19 05:12 Chloride 112 mEq/L (98-107) H 07/04/19 03:00 Carbon Dioxide 21 mEq/L (23-29) L 07/04/19 03:00 Glucose 107 mg/dL (70-105) H 07/04/19 03:00 Lactic Acid < 0.2 mmol/L (0.5-2.2) L 07/03/19 12:43 Calcium 7.7 mg/dL (8.6-10.3) L 07/04/19 03:00 Direct Bilirubin 0.3 mg/dL (0.0-0.2) H 07/03/19 11:00 AST 44 Units/L (13-39) H 07/04/19 03:00 Creatine Kinase 408 Units/L (30-223) H 07/03/19 12:43 Troponin I 0.33 ng/mL (< 0.04) H* 07/03/19 22:30 Serum Total Protein 5.9 g/dL (6.4-8.9) L 07/04/19 03:00 Albumin 3.2 g/dL (3.5-5.7) L 07/04/19 03:00 Urine Clarity Cloudy (Clear) A 07/03/19 16:15 Urine Microscopic RBC 5-15 per hpf (0-3) H 07/03/19 16:15 Nasal Screen MRSA (PCR) DETECTED (Not Detect) A 07/03/19 15:10 Salicylates < 2.5 mg/dL (15.0-30.0) L 07/03/19 13:37 Ur Buprenorphine Scrn Positive ng/mL (Cutoff=5) H 07/03/19 16:15 Acetaminophen < 10 mcg/mL (10-20) L 07/03/19 13:37 Ur Amphetamines Screen Positive ng/mL (Bxfbnp=8931) H 07/03/19 16:15 U Benzodiazepines Scrn Positive ng/mL (Vhmpel=785) H 07/03/19 16:15 Hepatitis C Ab Screen Reactive (Nonreactive) H 07/03/19 13:37 - Microbiology Findings Microbiology Findings: Microbiology, Last 48 Hours 07/03/19 16:15 Wound Culture - Preliminary Left Thigh 07/03/19 16:30 Sputum Culture - Preliminary Sputum 07/03/19 11:00 Blood Culture - Preliminary Peripheral Venipuncture Culture is incubating and being continuously monitored for growth. Final report to follow. 07/03/19 11:00 Blood Culture - Preliminary Peripheral Venipuncture Culture is incubating and being continuously monitored for growth. Final report to follow. - Clinical Findings Intake & Output: Intake & Output 07/03/19 07/04/19 07/04/19 23:59 07:59 15:59 Intake Total 3100 / 3585 500 / 500 Output Total 1275 / 1675 590 / 590 Balance 1825 / 1910 -90 / -90 Weight 99 kg - VTE Documentation of Mechanical Device: Intermittent pneumatic compression device Consult Discharge Plan - Plan Referrals: NONE,PCP [Primary Care Provider] - <Serafin Cross W - Last Filed: 07/04/19 10:55> Date of Encounter: 07/04/19 Objective PUL Vital signs: Last Vital Signs Temp 101 F H 07/04/19 08:00 Pulse 93 07/04/19 10:00 Resp 16 07/04/19 10:00 BP 89/57 07/04/19 10:00 Pulse Ox 96 07/04/19 10:00 Ventilator Settings Ventilator Settings: Ventilator Settings, Last 8 Hours Ventilator Tidal Volume 500 Setting Ventilator Tidal Volume 500 Setting Ventilator Tidal Volume 500 Setting Ventilator Tidal Volume 500 Setting Ventilator Tidal Volume 500 Setting Ventilator Tidal Volume 500 Setting Ventilator Tidal Volume 500 Setting Ventilator Tidal Volume 500 Setting Ventilator Tidal Volume 500 Setting Ventilator Tidal Volume 500 Setting Ventilator Respiratory Rate 16 Setting Ventilator Respiratory Rate 16 Setting Ventilator Respiratory Rate 16 Setting Ventilator Respiratory Rate 16 Setting Ventilator Respiratory Rate 16 Setting Ventilator Respiratory Rate 16 Setting Ventilator Respiratory Rate 16 Setting Ventilator Respiratory Rate 16 Setting Ventilator Respiratory Rate 16 Setting Ventilator Respiratory Rate 16 Setting Actual Respiratory Rate 16 Actual Respiratory Rate 16 Actual Respiratory Rate 16 Actual Respiratory Rate 16 Actual Respiratory Rate 16 Actual Respiratory Rate 16 Actual Respiratory Rate 16 Actual Respiratory Rate 16 Positive End Expiratory 5 Pressure Positive End Expiratory 5 Pressure Positive End Expiratory 5 Pressure Positive End Expiratory 5 Pressure Positive End Expiratory 5 Pressure Positive End Expiratory 5 Pressure Positive End Expiratory 477 Pressure Peak Inspiratory Airway 17 Pressure Peak Inspiratory Airway 17 Pressure Peak Inspiratory Airway 16 Pressure Peak Inspiratory Airway 18 Pressure Peak Inspiratory Airway 19 Pressure Peak Inspiratory Airway 19 Pressure Peak Inspiratory Airway 17 Pressure Peak Inspiratory Airway 18 Pressure Peak Inspiratory Airway 19 Pressure Results - Laboratory Findings CBC and BMP: 07/04/19 03:00 07/04/19 03:00 ABG ABG pH 7.32 pH Units (7.32-7.45) 07/04/19 05:12 ABG pCO2 50 mmHg (35-45) H 07/04/19 05:12 ABG pO2 91 mmHg (85-104) 07/04/19 05:12 ABG O2 Saturation 96 % (95-98) 07/04/19 05:12 PT/INR, D-dimer PT 12.1 Seconds (9.4-12.1) 07/03/19 11:00 Abnormal lab findings: Abnormal lab results WBC 13.5 K/mcL (4.3-11.1) H 07/04/19 03:00 Neutrophils # 10.5 K/mcL (1.6-8.9) H 07/04/19 03:00 APTT 48.1 Seconds (26.0-36.0) H 07/03/19 11:00 ABG pCO2 50 mmHg (35-45) H 07/04/19 05:12 ABG Total CO2 27 mEq/L (20-26) H 07/04/19 05:12 Chloride 112 mEq/L (98-107) H 07/04/19 03:00 Carbon Dioxide 21 mEq/L (23-29) L 07/04/19 03:00 Glucose 107 mg/dL (70-105) H 07/04/19 03:00 Lactic Acid < 0.2 mmol/L (0.5-2.2) L 07/03/19 12:43 Calcium 7.7 mg/dL (8.6-10.3) L 07/04/19 03:00 Direct Bilirubin 0.3 mg/dL (0.0-0.2) H 07/03/19 11:00 AST 44 Units/L (13-39) H 07/04/19 03:00 Creatine Kinase 408 Units/L (30-223) H 07/03/19 12:43 Troponin I 0.33 ng/mL (< 0.04) H* 07/03/19 22:30 Serum Total Protein 5.9 g/dL (6.4-8.9) L 07/04/19 03:00 Albumin 3.2 g/dL (3.5-5.7) L 07/04/19 03:00 Urine Clarity Cloudy (Clear) A 07/03/19 16:15 Urine Microscopic RBC 5-15 per hpf (0-3) H 07/03/19 16:15 Nasal Screen MRSA (PCR) DETECTED (Not Detect) A 07/03/19 15:10 Salicylates < 2.5 mg/dL (15.0-30.0) L 07/03/19 13:37 Ur Buprenorphine Scrn Positive ng/mL (Cutoff=5) H 07/03/19 16:15 Acetaminophen < 10 mcg/mL (10-20) L 07/03/19 13:37 Ur Amphetamines Screen Positive ng/mL (Nxtwsa=2059) H 07/03/19 16:15 U Benzodiazepines Scrn Positive ng/mL (Gwcrqi=878) H 07/03/19 16:15 Hepatitis C Ab Screen Reactive (Nonreactive) H 07/03/19 13:37 - Microbiology Findings Microbiology Findings: Microbiology, Last 48 Hours 07/03/19 16:15 Wound Culture - Preliminary Left Thigh 07/03/19 16:30 Sputum Culture - Preliminary Sputum 07/03/19 11:00 Blood Culture - Preliminary Peripheral Venipuncture Culture is incubating and being continuously monitored for growth. Final report to follow. 07/03/19 11:00 Blood Culture - Preliminary Peripheral Venipuncture Culture is incubating and being continuously monitored for growth. Final report to follow. - Clinical Findings Intake & Output: Intake & Output 07/03/19 07/04/19 07/04/19 23:59 07:59 15:59 Intake Total 3100 / 3585 500 / 735 235 / 735 Output Total 1275 / 1675 590 / 590 Balance 1825 / 1910 -90 / 145 235 / 145 Weight 99 kg - Attending Attestation I examined this patient and my medical decision-making was [facility]. I agree with the documented findings, disposition and treatment plan as described except to the extent set forth below. We independently had [id number] contact with the patient I spent 32min of Critical Care time with this patient. It involved decision making of high complexity to assess, manipulate, and support vital organ system failure and/or to prevent further life threatening deterioration of the patient's condition. The time involved in the performance of separately reportable procedures was not counted toward critical care time. Patient seen and examined at bedside Labs, radiology, chart personally reviewed. Management was reviewed during multidisciplinary critical care rounds. REPAIRER HANDTOOLS: Remains deeply sedated we will try to wean sedation to further evaluate neurological status fever overnight may indicate meningitis/encephalitis but this is felt to be less likely I do agree with LP per neuro recommendations today Pulm: Hypoxic respiratory failure remains on the vent mild respiratory acidosis we will continue to monitor for now and not a candidate for spontaneous breathing trial because of ongoing sedative requirements Cards: Blood pressure is acceptable today echocardiogram without wall motion abnormalities indicating that troponin elevation likely demand ischemia cardiology has evaluated the patient appreciate recommendations if the blood cultures positive for organisms such as MRSA may need LATIA GI: GI prophylaxis given Nutrition: Nothing by mouth for now can likely start enteral nutrition within the next 24 hours Renal: UOP Monitored, Cont to Trend sCr and monitor Electrolytes. Trend CPK ID: Patient has evidence of sepsis and this is likely in my opinion related to aspiration however meningeal encephalitis is not excluded broaden out antibiotics for this reason appreciated infectious disease recommendations. Continue IV fluids and will reevaluate lactate Heme/Onc: DVT prophylaxis given Endo: Glucose Monitored Integ/MSK: Skin Care per routine ICU Nursing Protocol to prevent ulcers. Lines: All lines examined without evidence of infection : Dispo: Monitor in ICU for vent/critical illness CODE:Full Code
--- NOTE | 2019-07-04 08:22 | Cardiology Progress Note ---
Date of Encounter: 07/04/19 Time of Encounter: 10:55 Assessment and Plan (1) Non-ST elevation SC (NSTEMI) Current Visit: Yes Status: Acute Patient has had elevated troponins at 0.056 > 1.35 > 0.68 > 0.65 > 0.33. Electrocardiogram was unremarkable for acute ischemic changes. UDS was negative for cocaine but positive for methamphetamines, benzodiazepines, buprenorphine. Echocardiogram showed EF 65%, normal LV chamber size and function. Concentric LV remodeling. Normal RV structure and function. Mild TR. No pulmonary HTN. -Currently waiting for blood culture results -If positive blood cultures, will order LATIA to check for endocarditis -We will not add any medications at this time -Continue to support hemodynamically. -Continue to provide respiratory support. -Continue to hold heparin for now, due to previous sanguinous drainage from NG tube. Discussion w patient/family: The assessment and plan as outlined above was discussed with the patient and/or family members who expressed understanding and agreement. All questions were answered. Thank you for involving us in the care of your patient. Please call with any questions. Subjective Principal diagnosis: NSTEMI, acute encephalopathy Interval history: Doc Liriano is a 49-year-old male for whom we are consulted for NSTEMI likely secondary to drug abuse. Patient is additionally encephalopathic with concern for meningoencephalitis with cultures pending. ECG showed no acute ischemic changes, though troponins have been elevated and are now trending down. Patient has developed fever this morning, currently 101 F. Blood cultures x2 pending. Objective Vital Signs, Last 4 Hours Temp Pulse Resp BP Pulse Ox 07/04/19 07:37 101 F H 07/04/19 07:16 16 93 07/04/19 06:44 16 95 07/04/19 06:00 97 16 91/62 95 07/04/19 05:00 100 16 96/62 95 Other: GENERAL: sedated, intubated SKIN: multiple small scabs over extremities and trunk, possibly skin-picking HENT: NG and ETT present. Moist mucosa. Some small lesions on body of lower lip. NECK: normal carotid pulses. Supple. EYES: pupils ~2mm, sluggishly reactive to light bilaterally CV: regular rate and rhythm, no murmurs RESPIRATORY: ventilated breath sounds, clear to auscultation bilaterally, no wheezes, rhonchi, or rales GI: soft, nondistended. Normal bowel sounds EXTREMITIES: peripheral pulses 2+/4, no edema, acyanotic Results 07/04/19 03:00 07/04/19 03:00 Lab Results 07/03/19 07/03/19 07/03/19 11:00 11:00 11:00 WBC 10.9 Hgb 15.7 Hct 46.3 Plt Count 203 INR 1.1 APTT 48.1 H Sodium 142 Potassium 3.8 Chloride 107 Carbon Dioxide 29 BUN 11 Creatinine 0.84 Glucose 122 H Calcium 8.8 Magnesium Total Bilirubin 0.7 AST 52 H ALT 46 Alkaline Phosphatase 59 Troponin I 0.68 H* 07/03/19 07/03/19 07/04/19 12:43 22:30 03:00 WBC 13.5 H Hgb 13.5 D Hct 41.0 Plt Count 180 INR APTT Sodium Potassium Chloride Carbon Dioxide BUN Creatinine Glucose Calcium Magnesium Total Bilirubin AST ALT Alkaline Phosphatase Troponin I 0.65 H* 0.33 H* 07/04/19 03:00 WBC Hgb Hct Plt Count INR APTT Sodium 143 Potassium 3.6 Chloride 112 H Carbon Dioxide 21 L BUN 11 Creatinine 1.17 Glucose 107 H Calcium 7.7 L Magnesium 1.8 Total Bilirubin 0.5 AST 44 H ALT 36 Alkaline Phosphatase 47 Troponin I - VTE Documentation of Mechanical Device: Intermittent pneumatic compression device Consult Discharge Plan - Plan Referrals: NONE,PCP [Primary Care Provider] -
[2019-07-04] MEDS ORDERED: Piperacillin/Tazobactam 3.375 GM in 0.9 % Sodium Chloride Mini Bag 100 ML IVPB SCH (09:00)
--- NOTE | 2019-07-04 09:34 | Infectious Disease Progress No ---
ID Progress Note Date of Encounter: 07/04/19 Time of Encounter: 09:32 - Subjective Subjective: Patient seen and examined. No acute events noted overnight. This morning, patient became febrile with a MAXIMUM TEMPERATURE of 101. He remains intubated and sedated. He is heavily sedated and does not respond to painful or verbal stimuli and review of systems is unobtainable. Per nursing, no acute issues. Neurology planning to consult IR for LP later today. - Objective CBC & Chem 7: 07/06/19 03:05 07/06/19 03:05 - Exam Vitals: Temp Pulse Resp BP Pulse Ox 101 F H 98 16 98/64 96 07/04/19 08:00 07/04/19 08:00 07/04/19 08:00 07/04/19 08:00 07/04/19 08:00 Exam: Head: Atraumatic, normal inspection, normocephalic. Eye: PERRLA, but sluggish. No scleral icterus noted. No subconjunctival hemorrhage noted. ENT: Mucous membranes moist. No odontogenic infection noted. Neck: Normal inspection, no meningismus. Respiratory: Clear to auscultation. No rales, respiratory distress, rhonchi, or wheezes noted. Cardiovascular: Regular rate and rhythm, S1 and S2 audible. No murmurs, rubs, or gallops. GI: Soft, nondistended, normal bowel sounds. NG tube to low intermittent wall suction. Richard catheter draining clear yellow urine. Extremities:No joint swelling, pedal edema, or tenderness noted. Multiple superficial scabbed lesions noted bilateral lower extremities in various stages of healing. No surrounding erythema, warmth, tenderness, or fluctuance noted. Neurological: Sedated, does not follow commands. Psychiatric: Calm, sedated. Skin: Dry, intact, warm. Normal color. No rashes. No endocarditis stigmata noted. - Assessment and Plan (1) SIRS (systemic inflammatory response syndrome) Current Visit: Yes Status: Acute The patient had three SIRS criteria with altered mental status at outside hospital. Redeveloped leukocytosis and fever. Source: Unclear. Aspiration pneumonia versus meningeal encephalitis versus other. White blood cell count elevated this morning. MAXIMUM TEMPERATURE 101. Blood cultures drawn 07/03/19 are pending x 2 sets. SNOMED Code(s): 906994625 (2) Pneumonia Current Visit: Yes Status: Suspected CXR this morning showed a left pleural effusion with left basilar consolidation. Causative organism: Unclear. Sputum culture positive for moderate GPC and few GNR. Aspiration on the differential given the patient's recent AMS. MRSA screen positive. Currently on Zosyn. Qualifiers: Qualified Code(s): J69.0 - Pneumonitis due to inhalation of food and vomit SNOMED Code(s): 842263521 (3) Acute encephalopathy Current Visit: Yes Status: Acute Etiology: Substance abuse vs. other. CT head negative. UDS positive for amphetamines, benzos, and suboxone. Unable to assess due to sedation. Meningoencephalitis lower on the list of differentials. Neurology consulted and following. SNOMED Code(s): 97473934, 904070743 (4) Polysubstance abuse Current Visit: Yes Status: Acute UDS positive for benzos, amphetamines, and suboxone. Hepatitis C positive. Hepatitis B negative. HIV nonreactive. SNOMED Code(s): 337753053 (5) Hepatitis C antibody positive in blood Current Visit: Yes Status: Acute Likely secondary to IVDU. Outpatient GI referral. SNOMED Code(s): 075802899 - Recommendations Recommendations: Await blood cultures to finalize. LP planned for later today. Please send CSF for cell count with differential, protein, glucose, and gram stain with culture as well as HSV and VZV PCR. Contact/droplet precautions per hospital policy. Discontinue Zosyn. Start cefepime 2 grams IV Q12H. Start flagyl 500mg IV TID. Start vancomycin IV. Pharmacy to dose. Goal trough ~15. Duration of treatment depends on the clinical picture. Monitor renal function and for drug toxicity and dose-adjust antibiotics. - VTE Documentation of Mechanical Device: Intermittent pneumatic compression device Consult Discharge Plan - Plan Referrals: NONE,PCP [Primary Care Provider] - - Attending Attestation I have personally performed a face to face evaluation on this patient. I have reviewed and agree with the care plan. History and Exam by me shows: Assessment and plan: Sepsis Pneumonia with left basilar consolidation causative organism not clear yet concern for aspiration positive MRSA screen Acute encephalopathy status post LP. No pleocytosis Gram stain is negative Polysubstance abuse Drug overdose Recommendations At this point I think risks source of his sepsis and aspiration pneumonia. His acute encephalopathy likely due to the drug overdose. Continue cefepime Continue Flagyl Continue vancomycin Duration of treatment depends on the clinical picture.
[2019-07-04] MEDS: Pantoprazole 40 MG VIAL IVP SCH (09:36)
[2019-07-04] MEDS: Chlorhexidine Rinse 15 ML MOUTHWASH MM SCH ×2 (09:36→20:10)
--- NOTE | 2019-07-04 09:45 | Internal Med Progress Note ---
Hospitalist Progress Note - Encounter Date of Encounter: 07/04/19 Time of Encounter: 07:15 - Subjective Interval History: Patient had an uneventful night but he spiked fevers this morning to 101F. Furthermore, his white blood cell count is elevated now. His exam is unchanged. X-ray does suggest possible left lower lobe infiltrate and small effusion. There is concern that he likely has aspiration pneumonia, and we will treat him as such. However, given the fever and elevated white count, I spoke with infectious disease and neurology. We will proceed with lumbar puncture per neurology today and then consider resuming antibiotics for possible meningitis. However, there still remains a low suspicion of meningitis. I discussed the case with and then collaborated with Dr. Cross as well. - Exam Vitals: Temp Pulse Resp BP Pulse Ox 101 F H 98 16 98/64 96 07/04/19 08:00 07/04/19 08:00 07/04/19 08:00 07/04/19 08:00 07/04/19 08:00 Exam: General: intubated and sedated HEENT: ETT/OG tube in place; neck supple Chest: Coarse BS; RRR/tachycardic; no MTR Abdomen: soft. NT, NO HSMG, + BS Ext: no CCE; equal pulses; full ROM Neuro: sedated Skin: warm and dry; scab/ulcer wounds - Assessment and Plan (1) Acute encephalopathy Current Visit: Yes Status: Acute Assessment and Plan: 1. Discussed with Neurology, ID, and pulmonary -- LP to be done today. 2. Antibiotics changed per ID. 3. Currently sedated while on ventilator. (2) Meningoencephalitis Current Visit: Yes Status: Suspected Assessment and Plan: 1. Low suspicion, but given fever adn elevated WBC, LP today. 2. Continue antibiotics and monitor. 3. ID and neurology following. (3) IVDU (intravenous drug user) Current Visit: Yes Status: Acute Assessment and Plan: 1. Intubated and sedated. 2. Discussed with pulmonary; will likely try to wean sedation and extubate in the next day or two after above work-up and treatment initiation. (4) Non-ST elevation PA (NSTEMI) Current Visit: Yes Status: Acute Assessment and Plan: 1. Likely due to overdose; appreciate cardiology follow up. 2. Monitor clinically and follow culture -- if + blood cultures, needs LATIA. (5) Multiple wounds of skin Current Visit: Yes Status: Acute Assessment and Plan: 1. Cultures penig. 2. Antibiotics as above. (6) DVT prophylaxis Current Visit: Yes Status: Acute Assessment and Plan: 1. EPCD's. 2. Heparin SQ. - Time Spent with Patient Total time spent is greater than 50% in coordination of care (as documented) at patient's floor/unit and/or counseling patient: Plan of Care Discussed with: other (MDR team, Pulmonary, ID, Neurology) Internal Medicine: Result - Labs CBC & Chem 7: 07/04/19 03:00 07/04/19 03:00 Labs: Short CBC 07/03/19 07/04/19 Range/Units 11:00 03:00 WBC 10.9 13.5 H (4.3-11.1) K/mcL Hgb 15.7 13.5 D (12.9-16.9) g/dL Hct 46.3 41.0 (37.5-50.1) % Plt Count 203 180 (140-400) K/mcL Neutrophils # 7.4 10.5 H (1.6-8.9) K/mcL BMP 07/03/19 07/04/19 11:00 03:00 Sodium 142 143 Potassium 3.8 3.6 Chloride 107 112 H Carbon Dioxide 29 21 L BUN 11 11 Creatinine 0.84 1.17 Glucose 122 H 107 H Calcium 8.8 7.7 L Cardiac Enzymes 07/03/19 07/03/19 07/03/19 Range/Units 11:00 12:43 22:30 Troponin I 0.68 H* 0.65 H* 0.33 H* (< 0.04) ng/mL Liver Function 07/03/19 07/04/19 Range/Units 11:00 03:00 Total Bilirubin 0.7 0.5 (0.3-1.0) mg/dL Direct Bilirubin 0.3 H 0.2 (0.0-0.2) mg/dL AST 52 H 44 H (13-39) Units/L ALT 46 36 (7-52) Units/L Alkaline Phosphatase 59 47 (34-104) Units/L Albumin 4.1 3.2 L (3.5-5.7) g/dL Urine 07/03/19 Range/Units 16:15 Urine Color Yellow (Yellow) Urine Clarity Cloudy A (Clear) Urine pH 6.0 (5.0-8.0) pH Units Ur Specific [place] 1.017 (1.010-1.025) Urine Protein Negative (Neg-Trace) mg/dL Urine Glucose (UA) Normal (Normal) mg/dL - ABG Interpretation ABG results: ABG ABG pH 7.32 pH Units (7.32-7.45) 07/04/19 05:12 ABG pCO2 50 mmHg (35-45) H 07/04/19 05:12 ABG pO2 91 mmHg (85-104) 07/04/19 05:12 ABG O2 Saturation 96 % (95-98) 07/04/19 05:12 PT/INR, D-dimer PT 12.1 Seconds (9.4-12.1) 07/03/19 11:00 - Impressions Impressions Chest X-Ray 07/03/19 11:10 IMPRESSION: 1. The endotracheal tube tip is located 8.4 cm above the ronda. This could be advanced approximately 3 cm for more optimal placement. 2. The NG tube tip and side port are noted in the gastric fundus. 3. Small left pleural effusion with associated left basilar atelectasis. D/ : / 07/03/2019 11:41:47 Johnny Kinsey MD / Valerie Benedict Interpreting Provider: Johnny Kinsey MD Echocardiogram 07/03/19 11:26 Impressions: LVEF 65%. Normal LV chamber size and function. Concentric LV remodeling. Normal right ventricular structure and function. Mild tricuspid regurgitation. No pulmonary hypertension. Left Ventricular Wall Motion: Rest Echo Findings All wall segments showed normal motion. Findings: Study Quality * Technically adequate exam. ECG Findings * Normal sinus rhythm. Left Ventricle * LVEF 65%. * Normal LV chamber size and systolic function. Concentric LV remodeling. * Normal left ventricular diastolic function. Right Ventricle * Normal right ventricular structure and function. Left Atrium * Normal left atrial size. Right Atrium * Normal right atrial size. Interatrial Septum * Interatrial septum not well evaluated. Aortic Valve * Trileaflet aortic valve with normal function. * No aortic stenosis. * No aortic regurgitation. Mitral Valve * Normal mitral valve structure. * No mitral stenosis. * Trace mitral regurgitation. Tricuspid Valve * Normal tricuspid valve function. * No tricuspid stenosis. * Mild tricuspid regurgitation. * Estimated RVSP is 30 mmHg. * Estimated RA pressure is 8 mmHg. * No pulmonary hypertension. Pulmonic Valve * Pulmonic valve is not well visualized. * No pulmonic stenosis. * Mild pulmonic regurgitation. Aorta * Normally sized aortic root. Pericardium * The pericardium appears normal. IVC * The IVC is not dilated. * < 50% respiratory change. Chest X-Ray 07/04/19 07:59 IMPRESSION: 1. Endotracheal tube tip lies approximately 6.7 cm above the ronda. 2. Stable mild left pleural effusion and lung base consolidation. 3. Stable configuration of enteric tube in the stomach with the tip in the region of the fundus. D/ / 07/04/2019 08:29:38 Kaushik Arguello MD / chrissy Interpreting Provider: Kaushik Arguello MD - VTE Documentation of Mechanical Device: Intermittent pneumatic compression device Consult Discharge Plan - Plan Referrals: NONE,PCP [Primary Care Provider] -
--- NOTE | 2019-07-04 10:04 | Neurology Progress Note ---
Date of Encounter: 07/04/19 Time of Encounter: 10:00 Assessment and Plan (1) Acute encephalopathy Current Visit: Yes Status: Acute Acute Encephalopathy- Polysubstance abuse vs meningitis and/or infection vs other Known polysubstance abuse hx; UDS + meth, BZD's and suboxone But also had SIRS criteria x3 at outside hospital with fevers, leukocytosis and tachycardia Overnight fevers returned with TMAX of 101, Leukocytosis of 13.5 today 07/04 - r/o infectious etiology; blood cultures, sputum cultures pending - ID seeing in c/s rec appreciated - We will do LP today; in the meantime c/w ABX and antiviral coverage - CSF for studies including WBC's, protein, glucose, cell count with differential, cultures, gram stain and HSV-1 PCR - otherwise continue with medical and supportive care - neurology will continue to follow Subjective Principal diagnosis: NSTEMI, acute encephalopathy Interval history: The patient was seen in follow-up for encephalopathy versus [employer]ER infection. At this juncture he is still mechanically intubated and sedated. The chart was reviewed, it appears that he was febrile overnight. Leukocytosis also increasing with WBC of 13.5. Findings were discussed with ICU hospitalist and master control supervisor as well as infectious disease. No family present at bedside. Objective - Constitutional Vitals: Temp Pulse Resp BP Pulse Ox 101 F H 98 16 98/64 97 07/04/19 08:00 07/04/19 08:00 07/04/19 09:43 07/04/19 08:00 07/04/19 09:43 Exam: Examination: Limited by patients altered mental state General Examination: *CONSTITUTIONAL: sedated and intubated *GENERAL APPEARANCE OF PATIENT appears older than stated age and unhealthy *EYES: pupils equal, round, reactive to light and accommodation, conjunctiva clear without masses or ulcerations, fundi normal. *CARDIOVASCULAR: RRR, no peripheral edema, distal temperature normal, dorsalis pedis pulses normal. Refer to vital signs Neurological: *ORIENTATION sedated *LANGUAGE AND FUNCTION no significant aphasia or dysarthia was noted. *CN II optic fundi were normal, no papilledema noted. *CN III,IV, Pupils are sluggish but are equal, round and reactive to light and accommodation *REFLEXES: deep tendon reflexes were absent diffusely, no pathological reflexes were noted. - VTE Documentation of Mechanical Device: Intermittent pneumatic compression device Results - Laboratory Findings CBC and BMP: 07/04/19 03:00 07/04/19 03:00 Abnormal lab findings: Abnormal lab results WBC 13.5 K/mcL (4.3-11.1) H 07/04/19 03:00 Neutrophils # 10.5 K/mcL (1.6-8.9) H 07/04/19 03:00 APTT 48.1 Seconds (26.0-36.0) H 07/03/19 11:00 ABG pCO2 50 mmHg (35-45) H 07/04/19 05:12 ABG Total CO2 27 mEq/L (20-26) H 07/04/19 05:12 Chloride 112 mEq/L (98-107) H 07/04/19 03:00 Carbon Dioxide 21 mEq/L (23-29) L 07/04/19 03:00 Glucose 107 mg/dL (70-105) H 07/04/19 03:00 Lactic Acid < 0.2 mmol/L (0.5-2.2) L 07/03/19 12:43 Calcium 7.7 mg/dL (8.6-10.3) L 07/04/19 03:00 Direct Bilirubin 0.3 mg/dL (0.0-0.2) H 07/03/19 11:00 AST 44 Units/L (13-39) H 07/04/19 03:00 Creatine Kinase 408 Units/L (30-223) H 07/03/19 12:43 Troponin I 0.33 ng/mL (< 0.04) H* 07/03/19 22:30 Serum Total Protein 5.9 g/dL (6.4-8.9) L 07/04/19 03:00 Albumin 3.2 g/dL (3.5-5.7) L 07/04/19 03:00 Urine Clarity Cloudy (Clear) A 07/03/19 16:15 Urine Microscopic RBC 5-15 per hpf (0-3) H 07/03/19 16:15 Nasal Screen MRSA (PCR) DETECTED (Not Detect) A 07/03/19 15:10 Salicylates < 2.5 mg/dL (15.0-30.0) L 07/03/19 13:37 Ur Buprenorphine Scrn Positive ng/mL (Cutoff=5) H 07/03/19 16:15 Acetaminophen < 10 mcg/mL (10-20) L 07/03/19 13:37 Ur Amphetamines Screen Positive ng/mL (Swxdtc=2626) H 07/03/19 16:15 U Benzodiazepines Scrn Positive ng/mL (Ykxjjs=754) H 07/03/19 16:15 Hepatitis C Ab Screen Reactive (Nonreactive) H 07/03/19 13:37 Consult Discharge Plan - Plan Referrals: NONE,PCP [Primary Care Provider] -
--- NOTE | 2019-07-04 10:17 | Neurology Progress Note ---
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 At this juncture he is still mechanically intubated and sedated. The chart was reviewed, it appears that he was febrile overnight. Leukocytosis also increasing with WBC of 13.5. Findings were discussed with ICU hospitalist and foot setter as well as infectious disease. No family present at bedside. Objective - Constitutional Vitals: Temp Pulse Resp BP Pulse Ox 101 F H 98 16 98/64 97 07/04/19 08:00 07/04/19 08:00 07/04/19 09:43 07/04/19 08:00 07/04/19 09:43 - VTE Documentation of Mechanical Device: Intermittent pneumatic compression device Results - Laboratory Findings CBC and BMP: 07/04/19 03:00 07/04/19 03:00 Abnormal lab findings: Abnormal lab results WBC 13.5 K/mcL (4.3-11.1) H 07/04/19 03:00 Neutrophils # 10.5 K/mcL (1.6-8.9) H 07/04/19 03:00 APTT 48.1 Seconds (26.0-36.0) H 07/03/19 11:00 ABG pCO2 50 mmHg (35-45) H 07/04/19 05:12 ABG Total CO2 27 mEq/L (20-26) H 07/04/19 05:12 Chloride 112 mEq/L (98-107) H 07/04/19 03:00 Carbon Dioxide 21 mEq/L (23-29) L 07/04/19 03:00 Glucose 107 mg/dL (70-105) H 07/04/19 03:00 Lactic Acid < 0.2 mmol/L (0.5-2.2) L 07/03/19 12:43 Calcium 7.7 mg/dL (8.6-10.3) L 07/04/19 03:00 Direct Bilirubin 0.3 mg/dL (0.0-0.2) H 07/03/19 11:00 AST 44 Units/L (13-39) H 07/04/19 03:00 Creatine Kinase 408 Units/L (30-223) H 07/03/19 12:43 Troponin I 0.33 ng/mL (< 0.04) H* 07/03/19 22:30 Serum Total Protein 5.9 g/dL (6.4-8.9) L 07/04/19 03:00 Albumin 3.2 g/dL (3.5-5.7) L 07/04/19 03:00 Urine Clarity Cloudy (Clear) A 07/03/19 16:15 Urine Microscopic RBC 5-15 per hpf (0-3) H 07/03/19 16:15 Nasal Screen MRSA (PCR) DETECTED (Not Detect) A 07/03/19 15:10 Salicylates < 2.5 mg/dL (15.0-30.0) L 07/03/19 13:37 Ur Buprenorphine Scrn Positive ng/mL (Cutoff=5) H 07/03/19 16:15 Acetaminophen < 10 mcg/mL (10-20) L 07/03/19 13:37 Ur Amphetamines Screen Positive ng/mL (Llbxdw=2530) H 07/03/19 16:15 U Benzodiazepines Scrn Positive ng/mL (Zdhcpk=330) H 07/03/19 16:15 Hepatitis C Ab Screen Reactive (Nonreactive) H 07/03/19 13:37 Consult Discharge Plan - Plan Referrals: NONE,PCP [Primary Care Provider] -
[2019-07-04] MEDS ORDERED: Cefepime HCl 2,000 MG in Water for inj. (sterile) 20 ML IVPB SCH (11:00)
[2019-07-04] MEDS ORDERED: Oxymetazoline Nasal SPRAY BOTTLE NS PRN (12:05)
--- NOTE | 2019-07-04 13:26 | Procedure Note ---
Date of procedure: 07/04/19 (Lumbar puncture) Pre-op diagnosis: r/o UPPER TIER infection Post-op diagnosis: same Procedure: Written form of consent obtained. The patient was placed in the left lateral decubitus position in a semi- position with help from the nursing staff. The area was cleansed and draped in usual sterile fashion. Patient is currently on IV sedation. A 22-gauge 3.5-inch spinal needle was placed in the L3-L4 interspace. Clear cerebral spinal fluid was obtained on the first attempt and the opening pressure was not measured. Four tubes were filled with 8 mL of clear CSF. These were sent for the usual tests, including 1 tube to be held for further analysis if needed. The patient tolerated the procedure well and there were no complications. Anesthesia: IV sedation Was there an administrative assistant receptionist present: No Estimated blood loss (cc): 0 Specimen: CSF Condition: critical Disposition: ICU
[2019-07-04 13:43] LABS: Red Blood Cell,CSF < 0.002 M/mcL
[2019-07-04 13:47] LABS: Appearance,CSF Clear (Clear)
[2019-07-04] MEDS: Cefepime HCl 2,000 MG in Water for inj. (sterile) 20 ML IVP SCH ×2 (13:56→22:10)
[2019-07-04] MEDS: MetroNIDAZOLE 500 MG/100 ML 500 MG/100 ML BAG IVPB SCH ×2 (13:56→18:15)
[2019-07-04 14:06] LABS: Glucose,CSF 76 mg/dL (40-70); Total Protein,CSF 36 mg/dL (15-45)
[2019-07-04] MEDS ORDERED: Acyclovir 750 MG in D5% in Water 250 ML IVPB SCH (16:00)
[2019-07-04] MEDS: *HR* Heparin 5,000 UNIT/ML VIAL SQ SCH (18:16)
[2019-07-05] MEDS: Artificial Tears SOLN 15 ML BOTTLE BOTH EYES SCH ×6 (03:11→23:29)
[2019-07-05] MEDS: MetroNIDAZOLE 500 MG/100 ML 500 MG/100 ML BAG IVPB SCH ×2 (03:13→11:30)
[2019-07-05] MEDS: Ipratropium/Albuterol Neb 3 ML IH SCH ×6 (03:55→23:31)
[2019-07-05 03:57] LABS: Hematocrit 42.4 % (37.5-50.1); Hemoglobin 13.5 g/dL (12.9-16.9); Mean Corpuscular HGB Conc 31.8 g/dL (31.6-35.5); Mean Corpuscular Hemoglobin 30.5 pg (28.0-33.3); Mean Corpuscular Volume 95.7 fL (83.0-100.0); Mean Platelet Volume 10.7 fL (9.4-12.4); Platelet Count 175 K/mcL (140-400); Red Blood Count 4.43 M/mcL (4.19-5.50); White Blood Count 12.3 K/mcL (4.3-11.1)
[2019-07-05 04:39] LABS: ABG Base Excess -4 mEq/L (-2 to 3); ABG HCO3 24 mEq/L (21-27); ABG Oxygen Saturation 93 % (95-98); ABG PCO2 52 mmHg (35-45); ABG PH 7.26 pH Units (7.32-7.45); ABG PO2 76 mmHg (85-104); ABG TCO2 25 mEq/L (20-26); Blood Gas Modality ASSIST CONTROL; Blood Gas PEEP 5 cm H2O; Blood Gas VT 500 cc
[2019-07-05] MEDS: FentaNYL (PF) 1,000 MCG in 0.9 % Sodium Chloride 80 ML IVC SCH ×3 (04:54→22:25)
[2019-07-05] MEDS: *HR* Heparin 5,000 UNIT/ML VIAL SQ SCH ×2 (05:02→16:34)
[2019-07-05 05:45] LABS: BUN/Creatinine Ratio 12 (6-26); Blood Urea Nitrogen 14 mg/dL (6-20); Calcium 7.8 mg/dL (8.6-10.3); Carbon Dioxide 20 mEq/L (23-29); Chloride 116 mEq/L (98-107); Glucose 102 mg/dL (70-105); Magnesium 1.7 mg/dL (1.6-2.6); Osmolality,Calculated 297 (280-300); Sodium 143 mEq/L (136-145); eGFR For African Americans > 60 (> 60); eGFR For Non-African Americans > 60 (> 60)
--- NOTE | 2019-07-05 07:07 | Pulmonology Progress Note ---
<Phillip Hernández - Last Filed: 07/05/19 08:52> Date of Encounter: 07/05/19 Time of Encounter: 07:07 Assessment and Plan (1) Acute encephalopathy Current Visit: Yes Status: Acute Patient was found to be aggressive and agitated upon arrival at [facility] Due to level of agitation and concerns for withdrawals patient was intubated and sedated Agitation likely due to polysubstance abuse with a low suspicion of meningitis as patient no longer has fever and white count is not elevated Patient with elevated WBC at 13.5, diaphoretic, and with a fever of 101 this morning Chest x-ray with blunting of the left costophrenic angle in setting of patient who had recent intubation could demonstrate aspiration pneumonia -ID consulted, will follow recommendations currently on cefepime, metronidazole, and vancomycin antibiotic coverage -LP from 07/03 negative for signs of bacterial/viral meningitis -Currently intubated and sedated, plan to wean from vent today -Neurology consulted (2) Polysubstance abuse Current Visit: Yes Status: Acute Urine drug screen positive for benzodiazepines, methamphetamine, and Suboxone Most likely could be cause of patient's acute encephalopathy -Patient currently sedated and intubated, weaning off vent today -We will monitor for signs of withdrawal and initiate CIWA-B protocol if needed (3) Non-ST elevation NM (NSTEMI) Current Visit: Yes Status: Acute Patient with reported elevated troponins at [facility] Most likely due to demand ischemia in setting of polysubstance abuse and acute agitation/restraints at [facility] Troponin of 0.68 with repeat 2 hours later of 0.65 Echo with Ef of 65% and no wall segment motion abnormalities -Troponin downtrending with latest of 0.33 -Cardiology consulted will follow recommendations (4) Multiple wounds of skin Current Visit: Yes Status: Acute Action with multiple small scabbing wounds over the lower and upper extremities Father states there is poison sumac and poison griffin in his back yard and thinks pt may have been around it. -MRSA screening positive. -Blood and wound cultures pending -Currently on vancomycin (5) DVT prophylaxis Current Visit: Yes Status: Acute SCDs Subjective Principal diagnosis: NSTEMI, acute encephalopathy Interval history: Patient intubated and sedated Objective PUL Vital signs: Last Vital Signs Temp 99 F 07/05/19 03:03 Pulse 103 07/05/19 06:00 Resp 16 07/05/19 06:00 BP 123/77 07/05/19 06:00 Pulse Ox 97 07/05/19 06:00 General appearance: other (Intubated and sedated) Eyes: nonicteric ENT: other (ET tube in place) Neck: no lymphadenopathy (Ears to have a horizontal scar across the midline of the throat) Effort: normal Auscultation: bilateral: clear Cardiovascular: regular rate and rhythm Gastrointestinal: soft, non-tender, non-distended Integumentary: other (Diaphoretic) Extremities: no edema, pulses normal Musculoskeletal: no deformities unable to assess due to mental status Ventilator Settings Ventilator Settings: Ventilator Settings, Last 8 Hours Ventilator Tidal Volume 500 Setting Ventilator Tidal Volume 500 Setting Ventilator Tidal Volume 500 Setting Ventilator Tidal Volume 500 Setting Ventilator Tidal Volume 500 Setting Ventilator Tidal Volume 500 Setting Ventilator Tidal Volume 500 Setting Ventilator Tidal Volume 500 Setting Ventilator Tidal Volume 500 Setting Ventilator Tidal Volume 500 Setting Ventilator Tidal Volume 500 Setting Ventilator Respiratory Rate 16 Setting Ventilator Respiratory Rate 16 Setting Ventilator Respiratory Rate 16 Setting Ventilator Respiratory Rate 16 Setting Ventilator Respiratory Rate 16 Setting Ventilator Respiratory Rate 16 Setting Ventilator Respiratory Rate 16 Setting Ventilator Respiratory Rate 16 Setting Ventilator Respiratory Rate 16 Setting Ventilator Respiratory Rate 16 Setting Ventilator Respiratory Rate 16 Setting Actual Respiratory Rate 16 Actual Respiratory Rate 16 Actual Respiratory Rate 16 Actual Respiratory Rate 16 Actual Respiratory Rate 16 Actual Respiratory Rate 16 Actual Respiratory Rate 16 Actual Respiratory Rate 16 Actual Respiratory Rate 16 Positive End Expiratory 5 Pressure Positive End Expiratory 5 Pressure Positive End Expiratory 5 Pressure Positive End Expiratory 5 Pressure Positive End Expiratory 5 Pressure Positive End Expiratory 5 Pressure Positive End Expiratory 5 Pressure Positive End Expiratory 5 Pressure Positive End Expiratory 5 Pressure Positive End Expiratory 5 Pressure Positive End Expiratory 5 Pressure Peak Inspiratory Airway 20 Pressure Peak Inspiratory Airway 22 Pressure Peak Inspiratory Airway 8.7 Pressure Peak Inspiratory Airway 8.7 Pressure Peak Inspiratory Airway 19 Pressure Peak Inspiratory Airway 19 Pressure Peak Inspiratory Airway 19 Pressure Peak Inspiratory Airway 18 Pressure Peak Inspiratory Airway 18 Pressure Results - Laboratory Findings CBC and BMP: 07/05/19 03:30 07/05/19 04:15 ABG ABG pH 7.26 pH Units (7.32-7.45) L 07/05/19 04:33 ABG pCO2 52 mmHg (35-45) H 07/05/19 04:33 ABG pO2 76 mmHg (85-104) L 07/05/19 04:33 ABG O2 Saturation 93 % (95-98) L 07/05/19 04:33 PT/INR, D-dimer PT 12.1 Seconds (9.4-12.1) 07/03/19 11:00 Abnormal lab findings: Abnormal lab results WBC 12.3 K/mcL (4.3-11.1) H 07/05/19 03:30 Neutrophils # 10.5 K/mcL (1.6-8.9) H 07/04/19 03:00 APTT 48.1 Seconds (26.0-36.0) H 07/03/19 11:00 ABG pH 7.26 pH Units (7.32-7.45) L 07/05/19 04:33 ABG pCO2 52 mmHg (35-45) H 07/05/19 04:33 ABG pO2 76 mmHg (85-104) L 07/05/19 04:33 ABG Total CO2 27 mEq/L (20-26) H 07/04/19 05:12 ABG O2 Saturation 93 % (95-98) L 07/05/19 04:33 ABG Base Excess -4 mEq/L (-2 to 3) L 07/05/19 04:33 Chloride 116 mEq/L (98-107) H 07/05/19 04:15 Carbon Dioxide 20 mEq/L (23-29) L 07/05/19 04:15 Glucose 107 mg/dL (70-105) H 07/04/19 03:00 Lactic Acid < 0.2 mmol/L (0.5-2.2) L 07/03/19 12:43 Calcium 7.8 mg/dL (8.6-10.3) L 07/05/19 04:15 Direct Bilirubin 0.3 mg/dL (0.0-0.2) H 07/03/19 11:00 AST 44 Units/L (13-39) H 07/04/19 03:00 Creatine Kinase 408 Units/L (30-223) H 07/03/19 12:43 Troponin I 0.33 ng/mL (< 0.04) H* 07/03/19 22:30 Serum Total Protein 5.9 g/dL (6.4-8.9) L 07/04/19 03:00 Albumin 3.2 g/dL (3.5-5.7) L 07/04/19 03:00 Urine Clarity Cloudy (Clear) A 07/03/19 16:15 Urine Microscopic RBC 5-15 per hpf (0-3) H 07/03/19 16:15 CSF Glucose 76 mg/dL (40-70) H 07/04/19 12:20 Nasal Screen MRSA (PCR) DETECTED (Not Detect) A 07/03/19 15:10 Salicylates < 2.5 mg/dL (15.0-30.0) L 07/03/19 13:37 Ur Buprenorphine Scrn Positive ng/mL (Cutoff=5) H 07/03/19 16:15 Acetaminophen < 10 mcg/mL (10-20) L 07/03/19 13:37 Ur Amphetamines Screen Positive ng/mL (Ggtrjd=1972) H 07/03/19 16:15 U Benzodiazepines Scrn Positive ng/mL (Ozojkr=630) H 07/03/19 16:15 Hepatitis C Ab Screen Reactive (Nonreactive) H 07/03/19 13:37 - Microbiology Findings Microbiology Findings: Microbiology, Last 48 Hours 07/03/19 16:30 Sputum Culture - Preliminary Sputum 07/04/19 12:20 CSF Culture - Preliminary Cerebral Spinal Fluid Culture is incubating. 07/03/19 16:15 Wound Culture - Preliminary Left Thigh No growth. 07/03/19 11:00 Blood Culture - Preliminary Peripheral Venipuncture Culture is incubating and being continuously monitored for growth. Final report to follow. 07/03/19 11:00 Blood Culture - Preliminary Peripheral Venipuncture Culture is incubating and being continuously monitored for growth. Final report to follow. - Clinical Findings Intake & Output: Intake & Output 07/04/19 07/04/19 07/05/19 15:59 23:59 07:59 Intake Total 1500 / 3990 1990 / 3990 709 / 709 Output Total 500 / 1840 750 / 1840 400 / 400 Balance 1000 / 2150 1240 / 2150 309 / 309 Weight 100 kg 100 kg - VTE Documentation of Mechanical Device: Intermittent pneumatic compression device Consult Discharge Plan - Plan Referrals: NONE,PCP [Primary Care Provider] - <Serafin Cross - Last Filed: 07/05/19 09:28> Date of Encounter: 07/05/19 Objective PUL Vital signs: Last Vital Signs Temp 102.4 F H 07/05/19 08:00 Pulse 104 07/05/19 08:00 Resp 16 07/05/19 09:08 BP 116/74 07/05/19 09:08 Pulse Ox 93 07/05/19 09:08 Ventilator Settings Ventilator Settings: Ventilator Settings, Last 8 Hours Ventilator Tidal Volume 500 Setting Ventilator Tidal Volume 500 Setting Ventilator Tidal Volume 500 Setting Ventilator Tidal Volume 500 Setting Ventilator Tidal Volume 500 Setting Ventilator Tidal Volume 500 Setting Ventilator Tidal Volume 500 Setting Ventilator Tidal Volume 500 Setting Ventilator Tidal Volume 500 Setting Ventilator Tidal Volume 500 Setting Ventilator Tidal Volume 500 Setting Ventilator Tidal Volume 500 Setting Ventilator Respiratory Rate 16 Setting Ventilator Respiratory Rate 16 Setting Ventilator Respiratory Rate 16 Setting Ventilator Respiratory Rate 16 Setting Ventilator Respiratory Rate 16 Setting Ventilator Respiratory Rate 16 Setting Ventilator Respiratory Rate 16 Setting Ventilator Respiratory Rate 16 Setting Ventilator Respiratory Rate 16 Setting Ventilator Respiratory Rate 16 Setting Ventilator Respiratory Rate 16 Setting Ventilator Respiratory Rate 16 Setting Actual Respiratory Rate 16 Actual Respiratory Rate 16 Actual Respiratory Rate 16 Actual Respiratory Rate 16 Actual Respiratory Rate 16 Actual Respiratory Rate 16 Actual Respiratory Rate 16 Actual Respiratory Rate 16 Actual Respiratory Rate 16 Actual Respiratory Rate 16 Positive End Expiratory 5 Pressure Positive End Expiratory 5 Pressure Positive End Expiratory 5 Pressure Positive End Expiratory 5 Pressure Positive End Expiratory 5 Pressure Positive End Expiratory 5 Pressure Positive End Expiratory 5 Pressure Positive End Expiratory 5 Pressure Positive End Expiratory 5 Pressure Positive End Expiratory 5 Pressure Positive End Expiratory 5 Pressure Positive End Expiratory 5 Pressure Peak Inspiratory Airway 15 Pressure Peak Inspiratory Airway 18 Pressure Peak Inspiratory Airway 16 Pressure Peak Inspiratory Airway 18 Pressure Peak Inspiratory Airway 20 Pressure Peak Inspiratory Airway 22 Pressure Peak Inspiratory Airway 8.7 Pressure Peak Inspiratory Airway 8.7 Pressure Peak Inspiratory Airway 19 Pressure Peak Inspiratory Airway 19 Pressure Results - Laboratory Findings CBC and BMP: 07/05/19 03:30 07/05/19 04:15 ABG ABG pH 7.26 pH Units (7.32-7.45) L 07/05/19 04:33 ABG pCO2 52 mmHg (35-45) H 07/05/19 04:33 ABG pO2 76 mmHg (85-104) L 07/05/19 04:33 ABG O2 Saturation 93 % (95-98) L 07/05/19 04:33 PT/INR, D-dimer PT 12.1 Seconds (9.4-12.1) 07/03/19 11:00 Abnormal lab findings: Abnormal lab results WBC 12.3 K/mcL (4.3-11.1) H 07/05/19 03:30 Neutrophils # 10.5 K/mcL (1.6-8.9) H 07/04/19 03:00 APTT 48.1 Seconds (26.0-36.0) H 07/03/19 11:00 ABG pH 7.26 pH Units (7.32-7.45) L 07/05/19 04:33 ABG pCO2 52 mmHg (35-45) H 07/05/19 04:33 ABG pO2 76 mmHg (85-104) L 07/05/19 04:33 ABG Total CO2 27 mEq/L (20-26) H 07/04/19 05:12 ABG O2 Saturation 93 % (95-98) L 07/05/19 04:33 ABG Base Excess -4 mEq/L (-2 to 3) L 07/05/19 04:33 Chloride 116 mEq/L (98-107) H 07/05/19 04:15 Carbon Dioxide 20 mEq/L (23-29) L 07/05/19 04:15 Glucose 107 mg/dL (70-105) H 07/04/19 03:00 Lactic Acid < 0.2 mmol/L (0.5-2.2) L 07/03/19 12:43 Calcium 7.8 mg/dL (8.6-10.3) L 07/05/19 04:15 Direct Bilirubin 0.3 mg/dL (0.0-0.2) H 07/03/19 11:00 AST 44 Units/L (13-39) H 07/04/19 03:00 Creatine Kinase 408 Units/L (30-223) H 07/03/19 12:43 Troponin I 0.33 ng/mL (< 0.04) H* 07/03/19 22:30 Serum Total Protein 5.9 g/dL (6.4-8.9) L 07/04/19 03:00 Albumin 3.2 g/dL (3.5-5.7) L 07/04/19 03:00 Urine Clarity Cloudy (Clear) A 07/03/19 16:15 Urine Microscopic RBC 5-15 per hpf (0-3) H 07/03/19 16:15 CSF Glucose 76 mg/dL (40-70) H 07/04/19 12:20 Nasal Screen MRSA (PCR) DETECTED (Not Detect) A 07/03/19 15:10 Salicylates < 2.5 mg/dL (15.0-30.0) L 07/03/19 13:37 Ur Buprenorphine Scrn Positive ng/mL (Cutoff=5) H 07/03/19 16:15 Acetaminophen < 10 mcg/mL (10-20) L 07/03/19 13:37 Ur Amphetamines Screen Positive ng/mL (Eydwtg=1631) H 07/03/19 16:15 U Benzodiazepines Scrn Positive ng/mL (Mzuwbk=437) H 07/03/19 16:15 Hepatitis C Ab Screen Reactive (Nonreactive) H 07/03/19 13:37 - Microbiology Findings Microbiology Findings: Microbiology, Last 48 Hours 07/04/19 12:20 CSF Culture - Preliminary Cerebral Spinal Fluid 07/03/19 16:30 Sputum Culture - Preliminary Sputum 07/03/19 16:15 Wound Culture - Preliminary Left Thigh No growth. 07/03/19 11:00 Blood Culture - Preliminary Peripheral Venipuncture Culture is incubating and being continuously monitored for growth. Final report to follow. 07/03/19 11:00 Blood Culture - Preliminary Peripheral Venipuncture Culture is incubating and being continuously monitored for growth. Final report to follow. - Clinical Findings Intake & Output: Intake & Output 07/04/19 07/05/19 07/05/19 23:59 07:59 15:59 Intake Total 1990 / 3990 709 / 709 Output Total 750 / 1840 1050 / 1050 Balance 1240 / 2150 -341 / -341 Weight 100 kg 100 kg - Attending Attestation I examined this patient and my medical decision-making was reviewed with the Resident Physician. I agree with the documented findings, disposition and treatment plan as described except to the extent set forth below. We independently had [id number] contact with the patient Patient seen and examined at bedside Labs, radiology, chart personally reviewed. Management was reviewed during multidisciplinary critical care rounds. 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 PRODUCTION WORKER studies are not consistent with meningitis Pulm: Mild respiratory acidosis today but otherwise acceptable gas exchange today and we will decrease sedation patient wakes up and is doing well later could be a candidate for spontaneous breathing trial and liberation Cards: Blood pressure monitored and stable GI: GI prophylaxis while on vent Nutrition: If cannot liberate from vent day we will start enteral nutrition per dietary recommendations Renal: UOP Monitored, Cont to Trend sCr and monitor Electrolytes. ID: He is on antibiotics for aspiration white count is trending down at one fever spike this morning but the this is unclear if it was related to an infectious cause or possibly even some lingering effects of drug intoxication we will need to monitor may need to be recultured if persistent fevers or even broaden antibiotics appreciate infectious disease recommendations Heme/Onc: DVT prophylaxis given Endo: Glucose Monitored Integ/MSK: Skin Care per routine ICU Nursing Protocol to prevent ulcers. Lines: All lines examined without evidence of infection : Dispo: Monitor in ICU for vent management CODE: Full
[2019-07-05] MEDS: Chlorhexidine Rinse 15 ML MOUTHWASH MM SCH ×2 (08:13→20:08)
[2019-07-05] MEDS: Ringers Solution, Lactated 1,000 ML IVC SCH ×2 (08:13→18:40)
[2019-07-05] MEDS: Pantoprazole 40 MG VIAL IVP SCH (08:13)
--- NOTE | 2019-07-05 09:25 | Infectious Disease Progress No ---
ID Progress Note Date of Encounter: 07/05/19 Time of Encounter: 09:23 - Subjective Subjective: Patient seen and examined with father at the bedside. No acute events noted overnight. This morning, patient became febrile with a MAXIMUM TEMPERATURE of 102. He remains intubated and sedated. He is heavily sedated and does not respond to painful or verbal stimuli and review of systems is unobtainable. Per nursing, no acute issues. Planning to wean sedation per pulm. Status post LP 07/04/19. - Objective CBC & Chem 7: 07/06/19 03:05 07/06/19 03:05 - Line Documentation Line Documentation: Richard Catheter - Exam Vitals: Temp Pulse Resp BP Pulse Ox 102.4 F H 104 16 116/74 93 07/05/19 08:00 07/05/19 08:00 07/05/19 09:08 07/05/19 09:08 07/05/19 09:08 Exam: Head: Atraumatic, normal inspection, normocephalic. Eye: PERRLA, but sluggish. No scleral icterus noted. No subconjunctival hemorrhage noted. ENT: Mucous membranes moist. No odontogenic infection noted. Neck: Normal inspection, no meningismus. Respiratory: Clear to auscultation. No rales, respiratory distress, rhonchi, or wheezes noted. Cardiovascular: Regular rate and rhythm, S1 and S2 audible. No murmurs, rubs, or gallops. GI: Soft, nondistended, normal bowel sounds. NG tube to low intermittent wall suction. Richard catheter draining dark cloudy yellow urine. Extremities: No joint swelling, pedal edema, or tenderness noted. Multiple s uperficial scabbed lesions noted bilateral lower extremities in various stages of healing. No surrounding erythema, warmth, tenderness, or fluctuance noted. Neurological: Sedated, does not follow commands. Psychiatric: Calm, sedated. Skin: Dry, intact, warm. Normal color. No rashes. No endocarditis stigmata noted. - Assessment and Plan (1) SIRS (systemic inflammatory response syndrome) Current Visit: Yes Status: Acute The patient had three SIRS criteria with altered mental status at outside hospital. Redeveloped leukocytosis and fever. Source: Unclear. Aspiration pneumonia versus other. White blood cell count elevated this morning. MAXIMUM TEMPERATURE 102.. Blood cultures drawn 07/03/19 are NGTD x 2 sets. SNOMED Code(s): 097611500 (2) Pneumonia Current Visit: Yes Status: Suspected CXR showed a left pleural effusion with left basilar consolidation. Causative organism: Unclear. Sputum culture positive for moderate GPC and few GNR. Aspiration on the differential given the patient's recent AMS. MRSA screen positive. Currently on Vanc, cefepime, and flagyl. Qualifiers: Pneumonia type: aspiration pneumonia Aspiration pneumonia type: unspecified Laterality: left Lung location: lower lobe of lung Qualified Code(s): J69.0 - Pneumonitis due to inhalation of food and vomit SNOMED Code(s): 658671957 (3) Acute encephalopathy Current Visit: Yes Status: Acute Etiology: Substance abuse vs. other. CT head negative. UDS positive for amphetamines, benzos, and suboxone. Unable to assess due to sedation. Status post LP. No pleocytosis. Gram stain and culture pending. HSV and VZV PCR pending. Neurology consulted and following. SNOMED Code(s): 31296607, 284962336 (4) Polysubstance abuse Current Visit: Yes Status: Acute UDS positive for benzos, amphetamines, and suboxone. Hepatitis C positive. Hepatitis B negative. HIV nonreactive. SNOMED Code(s): 544483195 (5) Hepatitis C antibody positive in blood Current Visit: Yes Status: Acute Likely secondary to IVDU. Outpatient GI referral. SNOMED Code(s): 118708744 - Recommendations Recommendations: Await blood cultures to finalize. Repeat blood cultures x 2 sets. Await CSF gram stain, cultures, and PCR. If fevers persist, consider CT chest, abdomen, and pelvis. Contact precautions per hospital policy. Continue cefepime 2 grams IV Q12H. Continue flagyl 500mg IV TID. Continue vancomycin IV. Pharmacy to dose. Goal trough ~15. Duration of treatment depends on the clinical picture. Monitor renal function and for drug toxicity and dose-adjust antibiotics. - VTE Documentation of Mechanical Device: Intermittent pneumatic compression device Consult Discharge Plan - Plan Referrals: NONE,PCP [Primary Care Provider] - - Attending Attestation I have personally performed a face to face evaluation on this patient. I have reviewed and agree with the care plan. History and Exam by me shows: Assessment and plan: Sepsis Pneumonia with left basilar consolidation causative organism not clear yet concern for aspiration positive MRSA screen Acute encephalopathy status post LP. No pleocytosis Gram stain is negative Polysubstance abuse Drug overdose Recommendations: Continue vancomycin Stop cefepime and Flagyl Start Zosyn Duration of treatment depends on the clinical picture
--- NOTE | 2019-07-05 09:29 | Neurology Progress Note ---
Date of Encounter: 07/05/19 Time of Encounter: 09:27 Assessment and Plan (1) Acute encephalopathy Current Visit: Yes Status: Acute Acute Encephalopathy- Substance abuse vs infection, vs other; ruled out PEDIATRIC LICENSED PRACTICAL NURSE infection with CSF negative for bacterial/viral infection CXR shows left pleural effusion with left basilar consolidation; consider aspiration PNA Still has fevers TMAX of 102, leukocytosis without significant improvement sputum culture with moderate gram positive cocci, and few gram negative rods Wound cultures no growth, blood cultures NGTD ID following; recommendations appreciated UDS + meth, BZD's and Suboxone; monitor for withdrawal sx otherwise c/w medical and supportive care and treatment of underlying infection Subjective Principal diagnosis: NSTEMI, acute encephalopathy Interval history: Patient seen and examined at the bedside today. Father present at this time. Patient remains intubated and sedated, no acute events occurred overnight. This morning he is fevers with a MAXIMUM TEMPERATURE of 102. Objective - Constitutional Vitals: Temp Pulse Resp BP Pulse Ox 102.4 F H 104 16 116/74 93 07/05/19 08:00 07/05/19 08:00 07/05/19 09:08 07/05/19 09:08 07/05/19 09:08 Exam: Examination: Limited by patients altered mental state Head: Atraumatic, normocephalic Neck: Normal inspection, no meningismus. Respiratory: diminished but clear b/ Extremities. Multiple superficial scabbed lesions noted bilateral lower extremities in various stages of healing following along the venous tracts. No surrounding erythema, warmth, or tenderness Psychiatric: Calm, sedated. General Examination: *CONSTITUTIONAL: sedated and intubated *GENERAL APPEARANCE OF PATIENT appears older than stated age and unhealthy *EYES: pupils equal, round, reactive to light and accommodation, conjunctiva clear without masses or ulcerations, fundi normal. *CARDIOVASCULAR: RRR, no peripheral edema, distal temperature normal, dorsalis pedis pulses normal. Refer to vital signs Neurological: *ORIENTATION sedated *CN II optic fundi were normal, no papilledema noted. *CN III,IV, Pupils are sluggish but are equal, round and reactive to light and accommodation *REFLEXES: deep tendon reflexes were absent diffusely, no pathological reflexes were noted. - VTE Documentation of Mechanical Device: Intermittent pneumatic compression device Results - Laboratory Findings CBC and BMP: 07/05/19 03:30 07/05/19 04:15 Abnormal lab findings: Abnormal lab results WBC 12.3 K/mcL (4.3-11.1) H 07/05/19 03:30 Neutrophils # 10.5 K/mcL (1.6-8.9) H 07/04/19 03:00 APTT 48.1 Seconds (26.0-36.0) H 07/03/19 11:00 ABG pH 7.26 pH Units (7.32-7.45) L 07/05/19 04:33 ABG pCO2 52 mmHg (35-45) H 07/05/19 04:33 ABG pO2 76 mmHg (85-104) L 07/05/19 04:33 ABG Total CO2 27 mEq/L (20-26) H 07/04/19 05:12 ABG O2 Saturation 93 % (95-98) L 07/05/19 04:33 ABG Base Excess -4 mEq/L (-2 to 3) L 07/05/19 04:33 Chloride 116 mEq/L (98-107) H 07/05/19 04:15 Carbon Dioxide 20 mEq/L (23-29) L 07/05/19 04:15 Glucose 107 mg/dL (70-105) H 07/04/19 03:00 Lactic Acid < 0.2 mmol/L (0.5-2.2) L 07/03/19 12:43 Calcium 7.8 mg/dL (8.6-10.3) L 07/05/19 04:15 Direct Bilirubin 0.3 mg/dL (0.0-0.2) H 07/03/19 11:00 AST 44 Units/L (13-39) H 07/04/19 03:00 Creatine Kinase 408 Units/L (30-223) H 07/03/19 12:43 Troponin I 0.33 ng/mL (< 0.04) H* 07/03/19 22:30 Serum Total Protein 5.9 g/dL (6.4-8.9) L 07/04/19 03:00 Albumin 3.2 g/dL (3.5-5.7) L 07/04/19 03:00 Urine Clarity Cloudy (Clear) A 07/03/19 16:15 Urine Microscopic RBC 5-15 per hpf (0-3) H 07/03/19 16:15 CSF Glucose 76 mg/dL (40-70) H 07/04/19 12:20 Nasal Screen MRSA (PCR) DETECTED (Not Detect) A 07/03/19 15:10 Salicylates < 2.5 mg/dL (15.0-30.0) L 07/03/19 13:37 Ur Buprenorphine Scrn Positive ng/mL (Cutoff=5) H 07/03/19 16:15 Acetaminophen < 10 mcg/mL (10-20) L 07/03/19 13:37 Ur Amphetamines Screen Positive ng/mL (Esucyv=0161) H 07/03/19 16:15 U Benzodiazepines Scrn Positive ng/mL (Lfrlel=587) H 07/03/19 16:15 Hepatitis C Ab Screen Reactive (Nonreactive) H 07/03/19 13:37 Consult Discharge Plan - Plan Referrals: NONE,PCP [Primary Care Provider] -
--- NOTE | 2019-07-05 10:41 | Cardiology Progress Note ---
Date of Encounter: 07/05/19 Time of Encounter: 10:37 Assessment and Plan (1) Non-ST elevation [place] (NSTEMI) Current Visit: Yes Status: Acute Patient has had elevated troponins at 0.056 > 1.35 > 0.68 > 0.65 > 0.33. Electrocardiogram was unremarkable for acute ischemic changes. UDS was negative for cocaine but positive for methamphetamines, benzodiazepines, buprenorphine. Echocardiogram showed EF 65%, normal LV chamber size and function. Concentric LV remodeling. Normal RV structure and function. Mild TR. No pulmonary HTN. -Continue to wait for blood culture results -If positive blood cultures, will order LATIA to evaluate for endocarditis; patient meets minor criteria of fever over 100.4 F and possible IVDA. No vascular phenomena of immunological criteria noted. -We will not add any medications at this time -Continue to support hemodynamically. -Continue to provide respiratory support. -Continue to hold heparin for now, patient continues to have sanguinous drainage from NG tube. Discussion w patient/family: The assessment and plan as outlined above was discussed with the patient and/or family members who expressed understanding and agreement. All questions were answered. Thank you for involving us in the care of your patient. Please call with any questions. Subjective Principal diagnosis: NSTEMI, acute encephalopathy Interval history: Doc Liriano is a 49-year-old male for whom we are consulted for NSTEMI likely secondary to drug abuse. Patient is additionally encephalopathic with concern for meningoencephalitis with cultures pending. ECG showed no acute ischemic changes, though troponins have been elevated and are now trending down. Patient continues to have intermittent fever this morning, with last temperature at 102.4 F. Temperature seems to spike around [id number] and possibly decreases as the day continues. Blood cultures x2 pending. Sputum cx final result pending; showed moderate gram positive cocci. Wound cx was negative. CSF showed no bacteria or WBCs. Sedation has been decreased but patient remains unresponsive to voice and physical stimuli. Father was at bedside. Objective Vital Signs, Last 4 Hours Temp Pulse Resp BP Pulse Ox 07/05/19 09:08 16 116/74 93 07/05/19 09:00 102 16 119/76 93 07/05/19 08:00 102.4 F H 104 16 116/74 92 07/05/19 07:26 102.4 F H 07/05/19 07:17 16 121/78 96 07/05/19 07:00 106 16 124/74 95 Other: GENERAL: Intubated, sedated. Did not rouse to voice or physical stimuli HENT: Atraumatic, normocephalic. Moist mucosa. ETT present, NG tube shows sanguinous fluid EYES: eyelids stuck together with discharge, pupils sluggishly reactive to light bilaterally. Anicteric. Clear sclerae NECK: no carotid bruits heard. Supple. CV: regular rate and rhythm. No murmurs, clicks, or gallops present. RESPIRATORY: clear to auscultation bilaterally. Ventilated breath sounds. No wheezes, rhonchi, or rales heard GI: soft, nontender, nondistended. Bowel sounds quiet but present EXTREMITIES: nonedematous. Peripheral pulses 2+/4 bilaterally. Capillary refill <2 sec bilaterally. Acyanotic. SKIN: multiple superficial scabs present on extremities and trunk. Many appear to be near venous sites. Warm, dry. Nonerythematous. Results 07/05/19 03:30 07/05/19 04:15 Lab Results 07/05/19 07/05/19 03:30 04:15 WBC 12.3 H Hgb 13.5 Hct 42.4 Plt Count 175 Sodium 143 Potassium 4.0 Chloride 116 H Carbon Dioxide 20 L BUN 14 Creatinine 1.18 Glucose 102 Calcium 7.8 L Magnesium 1.7 - VTE Documentation of Mechanical Device: Intermittent pneumatic compression device Consult Discharge Plan - Plan Referrals: NONE,PCP [Primary Care Provider] -
[2019-07-05] MEDS: Cefepime HCl 2,000 MG in Water for inj. (sterile) 20 ML IVP SCH (11:29)
--- NOTE | 2019-07-05 12:53 | Internal Med Progress Note ---
Hospitalist Progress Note - Encounter Date of Encounter: 07/05/19 Time of Encounter: 08:00 - Subjective Interval History: Patient remains intubated and sedated. I saw him independently and examined him independently. I also discussed the case in collaboration with Dr. Cross and the MDR team. He continues to spike fevers now and we repeated blood cultures today. Antibiotics will continue for now. Preliminary blood cultures and CSF cultures remain negative. As discussed on rounds, we will try to lift sedation and try him on CPAP trials and possibly wean off the ventilator, depending on his response to above. - Exam Vitals: Temp Pulse Resp BP Pulse Ox 101.8 F H 98 16 105/64 95 07/05/19 12:00 07/05/19 12:00 07/05/19 12:42 07/05/19 12:42 07/05/19 12:42 Exam: General: intubated, sedated HEENT: ETT,OG in place Chest: coarse BS, otherwise clear; RRR Abdomen: Soft, NT, ND, +BS, no HSMG Ext: no calf selling, trace edema; multiple skin/scab wounds Neuro: sedated,attempt at lifting sedation today Skin: scab wounds/ulcers as noted previously - Assessment and Plan (1) Acute encephalopathy Current Visit: Yes Status: Acute Assessment and Plan: 1. Trial at lifting sedating today and weaning form vent. 2. CPAP trials when feasible off sedation. 3. Father to be present at bedside. (2) Meningoencephalitis Current Visit: Yes Status: Suspected Assessment and Plan: 1. CSF studies do not suggest meningoencephalitis. 2. Continue antibiotics for now until final cultures resulted. (3) IVDU (intravenous drug user) Current Visit: Yes Status: Chronic Assessment and Plan: 1. Lifting sedation today in hopes of extubating. 2. Will need close monitoring for withdrawal. 3. Consult social work prior to discharge for assistance in rehab referral if patient agreeable. (4) Non-ST elevation [place] (NSTEMI) Current Visit: Yes Status: Acute Assessment and Plan: 1. Likely due to overdose with subsequent demand ischemia. 2. ECHO with normal LV function. (5) Multiple wounds of skin Current Visit: Yes Status: Acute Assessment and Plan: 1. As above; likely due to IVDU. 2. Continue antibiotics. (6) DVT prophylaxis Current Visit: Yes Status: Acute Assessment and Plan: 1. Heparin SQ. - Time Spent with Patient Total time spent is greater than 50% in coordination of care (as documented) at patient's floor/unit and/or counseling patient: Plan of Care Discussed with: other (MDR team, Dr. Cross, ID) Internal Medicine: Result - Labs CBC & Chem 7: 07/05/19 03:30 07/05/19 04:15 Labs: Short CBC 07/05/19 Range/Units 03:30 WBC 12.3 H (4.3-11.1) K/mcL Hgb 13.5 (12.9-16.9) g/dL Hct 42.4 (37.5-50.1) % Plt Count 175 (140-400) K/mcL BMP 07/05/19 04:15 Sodium 143 Potassium 4.0 Chloride 116 H Carbon Dioxide 20 L BUN 14 Creatinine 1.18 Glucose 102 Calcium 7.8 L - ABG Interpretation ABG results: ABG ABG pH 7.26 pH Units (7.32-7.45) L 07/05/19 04:33 ABG pCO2 52 mmHg (35-45) H 07/05/19 04:33 ABG pO2 76 mmHg (85-104) L 07/05/19 04:33 ABG O2 Saturation 93 % (95-98) L 07/05/19 04:33 PT/INR, D-dimer PT 12.1 Seconds (9.4-12.1) 07/03/19 11:00 - VTE Documentation of Mechanical Device: Intermittent pneumatic compression device Consult Discharge Plan - Plan Referrals: NONE,PCP [Primary Care Provider] -
[2019-07-05] MEDS: Piperacillin/Tazobactam 3.375 GM in 0.9 % Sodium Chloride Mini Bag 100 ML IVPB SCH ×2 (16:34→22:26)
[2019-07-05] MEDS: Dexmedetomidine HCl 400 MCG/100 ML MLS IVC SCH (19:32)
[2019-07-06 03:20] LABS: Hematocrit 40.3 % (37.5-50.1); Hemoglobin 13.2 g/dL (12.9-16.9); Mean Corpuscular HGB Conc 32.8 g/dL (31.6-35.5); Mean Corpuscular Hemoglobin 30.3 pg (28.0-33.3); Mean Corpuscular Volume 92.6 fL (83.0-100.0); Mean Platelet Volume 10.2 fL (9.4-12.4); Platelet Count 205 K/mcL (140-400); Red Blood Count 4.35 M/mcL (4.19-5.50); Red Cell Distribution Width 13.5 % (11.5-14.5); White Blood Count 13.1 K/mcL (4.3-11.1)
[2019-07-06] MEDS: Ipratropium/Albuterol Neb 3 ML IH SCH ×7 (03:21→23:40)
[2019-07-06] MEDS: Artificial Tears SOLN 15 ML BOTTLE BOTH EYES SCH ×2 (03:29→08:21)
[2019-07-06 03:35] LABS: Alanine Aminotransferase 23 Units/L (7-52); Alkaline Phosphatase 46 Units/L (34-104); Aspartate Amino Transferase 29 Units/L (13-39); BUN/Creatinine Ratio 13 (6-26); Bilirubin,Total 1.2 mg/dL (0.3-1.0); Blood Urea Nitrogen 16 mg/dL (6-20); Calcium 8.4 mg/dL (8.6-10.3); Carbon Dioxide 25 mEq/L (23-29); Chloride 113 mEq/L (98-107); Globulin 2.9 g/dL (2.4-3.5); Glucose 130 mg/dL (70-105); Magnesium 1.7 mg/dL (1.6-2.6); Osmolality,Calculated 299 (280-300); Potassium 3.9 mEq/L (3.5-5.1); Sodium 143 mEq/L (136-145); Total Protein 5.9 g/dL (6.4-8.9); eGFR For African Americans > 60 (> 60); eGFR For Non-African Americans > 60 (> 60)
[2019-07-06 04:18] LABS: ABG Base Excess -2 mEq/L (-2 to 3); ABG HCO3 25 mEq/L (21-27); ABG Oxygen Saturation 96 % (95-98); ABG PCO2 47 mmHg (35-45); ABG PH 7.33 pH Units (7.32-7.45); ABG PO2 88 mmHg (85-104); ABG TCO2 26 mEq/L (20-26); Blood Gas Modality ASSIST CONTROL; Blood Gas PEEP 5 cm H2O; Blood Gas VT 500 cc
[2019-07-06] MEDS: *HR* Heparin 5,000 UNIT/ML VIAL SQ SCH ×2 (05:01→16:35)
[2019-07-06] MEDS: Piperacillin/Tazobactam 3.375 GM in 0.9 % Sodium Chloride Mini Bag 100 ML IVPB SCH ×2 (06:00→16:34)
--- NOTE | 2019-07-06 07:44 | Pulmonology Progress Note ---
Date of Encounter: 07/06/19 Time of Encounter: 07:40 Assessment and Plan (1) Acute respiratory failure with hypoxia Current Visit: Yes Status: Acute Remains on vent undergoing spontaneous breathing trial with planned to get weaning parameters and proceed with extubation. (2) Acute encephalopathy Current Visit: Yes Status: Acute This is improving likely secondary to drug intoxication then use when necessary benzodiazepine and Precedex for agitation (3) Pneumonia Current Visit: Yes Status: Suspected Persistent leukocytosis despite being covered for aspiration organisms plan for pineda scan today by infectious disease and will defer to their judgment on antimicrobial selection Qualifiers: Pneumonia type: aspiration pneumonia Aspiration pneumonia type: unspecified Laterality: left Lung location: lower lobe of lung Qualified Code(s): J69.0 - Pneumonitis due to inhalation of food and vomit Subjective Principal diagnosis: NSTEMI, acute encephalopathy Interval history: When sedation overnight patient has been doing well he is currently undergoing CPAP trial still somnolent but able to follow all commands easily arousable Objective PUL Vital signs: Last Vital Signs Temp 100.1 F H 07/05/19 23:04 Pulse 82 07/06/19 06:00 Resp 18 07/06/19 06:00 BP 106/72 07/06/19 06:00 Pulse Ox 96 07/06/19 06:00 GEN: The patient is somnolent but easily arousable he follows commands HEENT: Pupils equal round reactive to light. Endotracheal tube in satisfactory position Resp: He has breath sounds bilaterally diminished in the lung base Cardio: Heart sounds are audible and regular rate and rhythm no murmur GI: Soft nontender nondistended bowel sounds are positive Ext: Distal pulses are easily palpable in all extremities warm without evidence of cyanosis Skin: No evidence of evolving rash or purpura Neuro: Patient able to move all Ixodes to command no gross neurological deficits Psych: Appears calm Ventilator Settings Ventilator Settings: Ventilator Settings, Last 8 Hours Ventilator Tidal Volume 500 Setting Ventilator Tidal Volume 500 Setting Ventilator Tidal Volume 500 Setting Ventilator Tidal Volume 500 Setting Ventilator Tidal Volume 500 Setting Ventilator Tidal Volume 500 Setting Ventilator Tidal Volume 500 Setting Ventilator Tidal Volume 500 Setting Ventilator Tidal Volume 500 Setting Ventilator Tidal Volume 500 Setting Ventilator Tidal Volume 500 Setting Ventilator Respiratory Rate 16 Setting Ventilator Respiratory Rate 16 Setting Ventilator Respiratory Rate 16 Setting Ventilator Respiratory Rate 16 Setting Ventilator Respiratory Rate 16 Setting Ventilator Respiratory Rate 16 Setting Ventilator Respiratory Rate 16 Setting Ventilator Respiratory Rate 16 Setting Ventilator Respiratory Rate 16 Setting Ventilator Respiratory Rate 16 Setting Ventilator Respiratory Rate 16 Setting Actual Respiratory Rate 16 Actual Respiratory Rate 16 Actual Respiratory Rate 16 Actual Respiratory Rate 16 Actual Respiratory Rate 16 Actual Respiratory Rate 16 Actual Respiratory Rate 16 Actual Respiratory Rate 16 Actual Respiratory Rate 16 Positive End Expiratory 5 Pressure Positive End Expiratory 5 Pressure Positive End Expiratory 5 Pressure Positive End Expiratory 5 Pressure Positive End Expiratory 5 Pressure Positive End Expiratory 5 Pressure Positive End Expiratory 5 Pressure Positive End Expiratory 5 Pressure Positive End Expiratory 5 Pressure Positive End Expiratory 5 Pressure Positive End Expiratory 5 Pressure Peak Inspiratory Airway 17 Pressure Peak Inspiratory Airway 16 Pressure Peak Inspiratory Airway 18 Pressure Peak Inspiratory Airway 17 Pressure Peak Inspiratory Airway 17 Pressure Peak Inspiratory Airway 17 Pressure Peak Inspiratory Airway 17 Pressure Peak Inspiratory Airway 20 Pressure Peak Inspiratory Airway 20 Pressure Results - Laboratory Findings CBC and BMP: 07/06/19 03:05 07/06/19 03:05 ABG ABG pH 7.33 pH Units (7.32-7.45) 07/06/19 04:15 ABG pCO2 47 mmHg (35-45) H 07/06/19 04:15 ABG pO2 88 mmHg (85-104) 07/06/19 04:15 ABG O2 Saturation 96 % (95-98) 07/06/19 04:15 PT/INR, D-dimer PT 12.1 Seconds (9.4-12.1) 07/03/19 11:00 Abnormal lab findings: Abnormal lab results WBC 13.1 K/mcL (4.3-11.1) H 07/06/19 03:05 Neutrophils # 10.5 K/mcL (1.6-8.9) H 07/04/19 03:00 APTT 48.1 Seconds (26.0-36.0) H 07/03/19 11:00 ABG pH 7.26 pH Units (7.32-7.45) L 07/05/19 04:33 ABG pCO2 47 mmHg (35-45) H 07/06/19 04:15 ABG pO2 76 mmHg (85-104) L 07/05/19 04:33 ABG Total CO2 27 mEq/L (20-26) H 07/04/19 05:12 ABG O2 Saturation 93 % (95-98) L 07/05/19 04:33 ABG Base Excess -4 mEq/L (-2 to 3) L 07/05/19 04:33 Chloride 113 mEq/L (98-107) H 07/06/19 03:05 Carbon Dioxide 20 mEq/L (23-29) L 07/05/19 04:15 Glucose 130 mg/dL (70-105) H 07/06/19 03:05 POC Glucose 106 mg/dL (70-99) H 07/05/19 23:32 Lactic Acid < 0.2 mmol/L (0.5-2.2) L 07/03/19 12:43 Calcium 8.4 mg/dL (8.6-10.3) L 07/06/19 03:05 Total Bilirubin 1.2 mg/dL (0.3-1.0) H 07/06/19 03:05 Direct Bilirubin 0.3 mg/dL (0.0-0.2) H 07/03/19 11:00 AST 44 Units/L (13-39) H 07/04/19 03:00 Creatine Kinase 408 Units/L (30-223) H 07/03/19 12:43 Troponin I 0.33 ng/mL (< 0.04) H* 07/03/19 22:30 Serum Total Protein 5.9 g/dL (6.4-8.9) L 07/06/19 03:05 Albumin 3.0 g/dL (3.5-5.7) L 07/06/19 03:05 Albumin/Globulin Ratio 1.0 (1.1-2.2) L 07/06/19 03:05 Urine Clarity Cloudy (Clear) A 07/03/19 16:15 Urine Microscopic RBC 5-15 per hpf (0-3) H 07/03/19 16:15 CSF Glucose 76 mg/dL (40-70) H 07/04/19 12:20 Nasal Screen MRSA (PCR) DETECTED (Not Detect) A 07/03/19 15:10 Vancomycin Trough 18 mcg/mL (5-10) H 07/05/19 21:50 Salicylates < 2.5 mg/dL (15.0-30.0) L 07/03/19 13:37 Ur Buprenorphine Scrn Positive ng/mL (Cutoff=5) H 07/03/19 16:15 Acetaminophen < 10 mcg/mL (10-20) L 07/03/19 13:37 Ur Amphetamines Screen Positive ng/mL (Fycyti=0976) H 07/03/19 16:15 U Benzodiazepines Scrn Positive ng/mL (Dqzlfs=066) H 07/03/19 16:15 Hepatitis C Ab Screen Reactive (Nonreactive) H 07/03/19 13:37 - Microbiology Findings Microbiology Findings: Microbiology, Last 48 Hours 07/03/19 16:15 Wound Culture - Preliminary Left Thigh 07/04/19 12:20 CSF Culture - Preliminary Cerebral Spinal Fluid 07/05/19 09:40 Blood Culture - Preliminary Peripheral Venipuncture Culture is incubating and being continuously monitored for growth. Final report to follow. 07/05/19 09:47 Blood Culture - Preliminary Peripheral Venipuncture Culture is incubating and being continuously monitored for growth. Final report to follow. 07/03/19 16:30 Sputum Culture - Preliminary Sputum - Clinical Findings Intake & Output: Intake & Output 07/05/19 07/05/19 07/06/19 15:59 23:59 07:59 Intake Total 1293 / 3575 1490 / 3575 425 / 425 Output Total 750 / 2700 900 / 2700 600 / 600 Balance 543 / 875 590 / 875 -175 / -175 Weight 101 kg - VTE Documentation of Mechanical Device: Intermittent pneumatic compression device Consult Discharge Plan - Plan Referrals: NONE,PCP [Primary Care Provider] -
[2019-07-06] MEDS: Pantoprazole 40 MG VIAL IVP SCH (08:20)
[2019-07-06] MEDS: Chlorhexidine Rinse 15 ML MOUTHWASH MM SCH (08:20)
[2019-07-06] MEDS: Ringers Solution, Lactated 1,000 ML IVC SCH ×2 (08:51→16:34)
--- NOTE | 2019-07-06 08:58 | Neurology Progress Note ---
Date of Encounter: 07/06/19 Time of Encounter: 08:54 Assessment and Plan (1) Acute encephalopathy Current Visit: Yes Status: Acute Acute Encephalopathy- HAND [employer] infection ruled out with negative CSF Sedation off, arouses to gentle verbal stimulus and follows commands today without any obvious focal deficits Etiology of altered mental state likely multifactorial with infection and polypharmacy with UDS positive for meth, BZD and Suboxone; monitor for wit hdrawal sx CXR shows left pleural effusion with left basilar consolidation; consider aspiration PNA Still has fevers TMAX of 100.1 overnight, leukocytosis persistsat 13.1 Preliminary sputum culture with moderate gram positive cocci, and few gram negative rods Wound cultures no growth, blood cultures NGTD ID following; recommendations appreciated otherwise c/w medical and supportive care and treatment of underlying infection Neurology will follow peripherally Subjective Principal diagnosis: NSTEMI, acute encephalopathy Interval history: Patient seen and examined at the bedside today. No family present at this time. Sedation off, patient alert to gentle verbal stimulus and will somewhat follow commands. He is calm and cooperative. No acute events overnight. He was afebrile overnight with a MAXIMUM TEMPERATURE of 100.1. Objective - Constitutional Vitals: Temp Pulse Resp BP Pulse Ox 100.1 F H 82 21 106/72 95 07/05/19 23:04 07/06/19 06:00 07/06/19 07:03 07/06/19 07:03 07/06/19 07:03 Exam: Examination: Exam remains limited with patient's altered mental state General Examination: *CONSTITUTIONAL: Arouses to verbal stimulus, calm and cooperative *GENERAL APPEARANCE OF PATIENT generally ill-appearing 49-year-old M *EYES: pupils equal, round, reactive to light and accommodation, conjunctiva clear without masses or ulcerations, fundi normal. *CARDIOVASCULAR: RRR, no peripheral edema, distal temperature normal, dorsalis pedis pulses normal. Refer to vital signs * MUSCULOSKELETAL: *GAIT AND STATION: Deferred; on mechanical ventilation *ASSESSMENT OF MUSCLE STRENGTH IN THE UPPER AND LOWER EXTREMITIES weak overall but moves all 4 extremities to command Neurological: *ORIENTATION to person *LANGUAGE AND FUNCTION mechanical ventilation, unable to assess language function *ATTENTION AND CONCENTRATION drowsy, will follow commands but needs reorientation and frequent prompting *CN II optic fundi were normal, no papilledema noted. *CN III,IV, PERRLA extraocular eye movements were full, no nystagmus and no ptosis noted. *CN V shows normal sensation and jaw opens symmetrically. *CN VII shows normal facial movement symmetrically, upper and lower bilaterally. *CN VIII shows no significant hearing loss on exam *CN XI no abnormalities in sternocleidomastoid muscles; moves had left and right *SENSORY EXAMINATION light touch intact *REFLEXES: deep tendon reflexes were diminished diffusely, no pathological reflexes were noted. - VTE Documentation of Mechanical Device: Intermittent pneumatic compression device Results - Laboratory Findings CBC and BMP: 07/06/19 03:05 07/06/19 03:05 Abnormal lab findings: Abnormal lab results WBC 13.1 K/mcL (4.3-11.1) H 07/06/19 03:05 Neutrophils # 10.5 K/mcL (1.6-8.9) H 07/04/19 03:00 APTT 48.1 Seconds (26.0-36.0) H 07/03/19 11:00 ABG pH 7.26 pH Units (7.32-7.45) L 07/05/19 04:33 ABG pCO2 47 mmHg (35-45) H 07/06/19 04:15 ABG pO2 76 mmHg (85-104) L 07/05/19 04:33 ABG Total CO2 27 mEq/L (20-26) H 07/04/19 05:12 ABG O2 Saturation 93 % (95-98) L 07/05/19 04:33 ABG Base Excess -4 mEq/L (-2 to 3) L 07/05/19 04:33 Chloride 113 mEq/L (98-107) H 07/06/19 03:05 Carbon Dioxide 20 mEq/L (23-29) L 07/05/19 04:15 Glucose 130 mg/dL (70-105) H 07/06/19 03:05 POC Glucose 106 mg/dL (70-99) H 07/05/19 23:32 Lactic Acid < 0.2 mmol/L (0.5-2.2) L 07/03/19 12:43 Calcium 8.4 mg/dL (8.6-10.3) L 07/06/19 03:05 Total Bilirubin 1.2 mg/dL (0.3-1.0) H 07/06/19 03:05 Direct Bilirubin 0.3 mg/dL (0.0-0.2) H 07/03/19 11:00 AST 44 Units/L (13-39) H 07/04/19 03:00 Creatine Kinase 408 Units/L (30-223) H 07/03/19 12:43 Troponin I 0.33 ng/mL (< 0.04) H* 07/03/19 22:30 Serum Total Protein 5.9 g/dL (6.4-8.9) L 07/06/19 03:05 Albumin 3.0 g/dL (3.5-5.7) L 07/06/19 03:05 Albumin/Globulin Ratio 1.0 (1.1-2.2) L 07/06/19 03:05 Urine Clarity Cloudy (Clear) A 07/03/19 16:15 Urine Microscopic RBC 5-15 per hpf (0-3) H 07/03/19 16:15 CSF Glucose 76 mg/dL (40-70) H 07/04/19 12:20 Nasal Screen MRSA (PCR) DETECTED (Not Detect) A 07/03/19 15:10 Vancomycin Trough 18 mcg/mL (5-10) H 07/05/19 21:50 Salicylates < 2.5 mg/dL (15.0-30.0) L 07/03/19 13:37 Ur Buprenorphine Scrn Positive ng/mL (Cutoff=5) H 07/03/19 16:15 Acetaminophen < 10 mcg/mL (10-20) L 07/03/19 13:37 Ur Amphetamines Screen Positive ng/mL (Tpabxk=1255) H 07/03/19 16:15 U Benzodiazepines Scrn Positive ng/mL (Pwixfq=159) H 07/03/19 16:15 Hepatitis C Ab Screen Reactive (Nonreactive) H 07/03/19 13:37 Consult Discharge Plan - Plan Referrals: NONE,PCP [Primary Care Provider] -
--- NOTE | 2019-07-06 09:07 | Infectious Disease Progress No ---
ID Progress Note Date of Encounter: 07/06/19 Time of Encounter: 09:02 - Subjective Subjective: Patient seen and examined with nursing at the bedside. No acute events noted overnight. This morning, patient became febrile with a MAXIMUM TEMPERATURE of 101 overnight. He remains intubated and sedated. Sedation turned off. Awakens to verbal stimuli and follows some commands. Shakes his head "no" when asked is he is in pain, short of breath, or nauseated. Otherwise, review of systems is unobtainable. Per nursing, no acute issues. Planning to wean sedation per pulm. Status post LP 07/04/19. - Objective CBC & Chem 7: 07/06/19 03:05 07/06/19 03:05 - Line Documentation Line Documentation: Richard Catheter - Exam Vitals: Temp Pulse Resp BP Pulse Ox 100.1 F H 86 21 106/72 95 07/05/19 23:04 07/06/19 07:00 07/06/19 07:03 07/06/19 07:03 07/06/19 07:03 Exam: Head: Atraumatic, normal inspection, normocephalic. Eye: PERRLA, but sluggish. No scleral icterus noted. No subconjunctival hemorrhage noted. ENT: Mucous membranes moist. No odontogenic infection noted. Neck: Normal inspection, no meningismus. Respiratory: Clear to auscultation. No rales, respiratory distress, rhonchi, or wheezes noted. Cardiovascular: Regular rate and rhythm, S1 and S2 audible. No murmurs, rubs, or gallops. GI: Soft, nondistended, normal bowel sounds. NG tube to low intermittent wall suction. Richard catheter draining dark cloudy yellow urine. Extremities: No joint swelling, pedal edema, or tenderness noted. Multiple lee perficial scabbed lesions noted bilateral lower extremities in various stages of healing. No surrounding erythema, warmth, tenderness, or fluctuance noted. Neurological: Sedated, opens eyes to verbal stimuli. Follows commands. Psychiatric: Calm, sedated. Skin: Dry, intact, warm. Normal color. No rashes. No endocarditis stigmata noted. - Assessment and Plan (1) SIRS (systemic inflammatory response syndrome) Current Visit: Yes Status: Acute The patient had three SIRS criteria with altered mental status at outside hospital. Redeveloped leukocytosis and fever. Source: Unclear. Aspiration pneumonia versus other. White blood cell count worse this morning. MAXIMUM TEMPERATURE 101. Blood cultures drawn 07/03/19 are NGTD x 2 sets. SNOMED Code(s): 544925100 (2) Pneumonia Current Visit: Yes Status: Suspected CXR showed a left pleural effusion with left basilar consolidation. Causative organism: Unclear. Sputum culture positive for moderate GPC and few GNR, but culture is negative. Aspiration on the differential given the patient's recent AMS. MRSA screen positive. RIP negative. Currently on Vanc and Zosyn. Qualifiers: Pneumonia type: aspiration pneumonia Aspiration pneumonia type: unspecified Laterality: left Lung location: lower lobe of lung Qualified Code(s): J69.0 - Pneumonitis due to inhalation of food and vomit SNOMED Code(s): 868501955 (3) Acute encephalopathy Current Visit: Yes Status: Acute Etiology: Substance abuse vs. other. CT head negative. UDS positive for amphetamines, benzos, and suboxone. Unable to assess due to sedation, but awakens to verbal stimuli and follows commands. Status post LP. No pleocytosis. Gram stain negative and culture is no growth. HSV and VZV PCR pending. Neurology consulted and following. SNOMED Code(s): 51969608, 684858230 (4) Polysubstance abuse Current Visit: Yes Status: Acute UDS positive for benzos, amphetamines, and suboxone. Hepatitis C positive. Hepatitis B negative. HIV nonreactive. SNOMED Code(s): 789270753 (5) Hepatitis C antibody positive in blood Current Visit: Yes Status: Acute Likely secondary to IVDU. Outpatient GI referral. SNOMED Code(s): 304786955 - Recommendations Recommendations: Await blood cultures to finalize. Await CSF cultures and PCR. If fevers persist, consider CT head, chest, abdomen, and pelvis. Contact precautions per hospital policy. Continue Zosyn 3.375 grams IV Q8H. Continue vancomycin IV. Pharmacy to dose. Goal trough ~15. Duration of treatment depends on the clinical picture. Monitor renal function and for drug toxicity and dose-adjust antibiotics. - VTE Documentation of Mechanical Device: Intermittent pneumatic compression device Consult Discharge Plan - Plan Referrals: NONE,PCP [Primary Care Provider] - - Attending Attestation I have personally performed a face to face evaluation on this patient. I have reviewed and agree with the care plan. History and Exam by me shows: Assessment and plan: Sepsis Pneumonia with left basilar consolidation causative organism not clear yet concern for aspiration positive MRSA screen Acute encephalopathy status post LP. No pleocytosis Gram stain is negative Polysubstance abuse Drug overdose Recommendations: Patient's father and brother are both at bedside. They tell me the patient also has significant asthma he has had since he was a child. Continue current antibiotics with vancomycin/Zosyn. Duration of treatment probably 10/14 days Goal vancomycin trough 1015
--- NOTE | 2019-07-06 10:29 | Event Note ---
Date of Encounter: 07/06/19 Time of Encounter: 10:00 - Cardiology Event Note Please full to Cardiology consult/progress note for full recommendations. Suspect troponin elevation related to drug use, etc. LVEF normal. No obvious valvular dysfunction. Blood cultures pending. ID following, infectious concerns/etiology remain unknown. Consider LATIA pending result of blood cultures. Reviewed with Dr. Ordonez; no further inpatient recommendations, will sign-off. Please call with questions.
[2019-07-06 11:14] LABS: HCV Quant Interpretation DETECTED (Not Detected)
[2019-07-06] MEDS: Dexmedetomidine HCl 400 MCG/100 ML MLS IVC SCH ×4 (11:36→21:22)
[2019-07-06] MEDS ORDERED: *HR* LORazepam 2 MG/ML VIAL IVP PRN (13:42)
[2019-07-06] MEDS ORDERED: Albuterol 2.5 MG/3 ML NEBULIZER IH PRN (15:16)
[2019-07-06] MEDS ORDERED: Naloxone 0.4 MG/ML INJ IVP PRN (15:16)
[2019-07-06] MEDS ORDERED: Oxymetazoline Nasal SPRAY BOTTLE NS PRN (15:16)
--- NOTE | 2019-07-06 15:52 | Internal Med Progress Note ---
Hospitalist Progress Note - Encounter Date of Encounter: 07/06/19 Time of Encounter: 09:05 - Subjective Interval History: I saw and examined patient this morning and apparently. His sedation was lifted and he was opening his eyes and responding appropriately on the ventilator. I discussed the patient case with MDR team, Dr. Cross, and primary nurse. Patient was extubated shortly after I saw him. Since then, he has done well and is breathing comfortably. He is responding appropriately. He is somewhat agitated times, however, requiring Precedex drip because of his drug abuse and withdrawal. I spoke with infectious diseases and they recommend CT of the chest, abdomen, and pelvis given his continued fever spike. Sputum culture is positive for pneumococcus. We will continue antibiotics until full cultures resulted and images performed as above. Patient was monitored in ICU throughout the day and will step down to for ongoing care. - Exam Vitals: Temp Pulse Resp BP Pulse Ox 99.2 F 74 20 100/65 96 07/06/19 12:22 07/06/19 15:00 07/06/19 15:00 07/06/19 15:00 07/06/19 15:00 Exam: General: Sleepy, arousable, answers questions appropriately, agitated at times HEENT: no icterus, neck supple, dry mucosa Chest: coarse breath sounds with rare wheezes, and basilar crackles; RRR Abdomen: soft, NT, ND, no HSMG, + BS Ext: no CCE, full ROM, no calf swelling Neuro: A&Ox2; moves all four extremities Skin: warm and dry - Assessment and Plan (1) Acute respiratory failure with hypoxia Current Visit: Yes Status: Acute Assessment and Plan: 1. Extubated early this morning. 2. Continue oxygen and wean as tolerated. 3. Aerosols PRN. 4. Continue antibiotics for pneumoccal pneumonia. (2) Acute encephalopathy Current Visit: Yes Status: Acute Assessment and Plan: 1. Likely due to drug of abuse. 2. Monitor clinically now and with the presence of family. 3. Wean off precedex as agitation from drugs wears off. 4. CSF cultures negative thus far; do not suspect meningoencephalitis. 5. Continue antibiotics until cultures finalized. (3) Pneumonia Current Visit: Yes Status: Suspected Assessment and Plan: 1. On appropriate antibiotics, but fevers persist. 2. Head, chest, and abdomen CT ordered to assess for underlying abscess despite more than adequate antibiotics to cover penumococcal pneumonia. 3. Await final blood cultures, sputum cultures, and urine cultures. (4) IVDU (intravenous drug user) Current Visit: Yes Status: Chronic Assessment and Plan: 1. Wean Precedx drip to off as tolerated. 2. Patient with extensive history of abuse; may need prolonged taper. (5) DVT prophylaxis Current Visit: Yes Status: Acute Assessment and Plan: 1. Heparin SQ. Plan of Care Discussed with: other (MDR team, Dr. Contreras, RN) Internal Medicine: Result - Labs CBC & Chem 7: 07/06/19 03:05 07/06/19 03:05 Labs: Short CBC 07/06/19 Range/Units 03:05 WBC 13.1 H (4.3-11.1) K/mcL Hgb 13.2 (12.9-16.9) g/dL Hct 40.3 (37.5-50.1) % Plt Count 205 (140-400) K/mcL BMP 07/06/19 03:05 Sodium 143 Potassium 3.9 Chloride 113 H Carbon Dioxide 25 BUN 16 Creatinine 1.20 Glucose 130 H Calcium 8.4 L Liver Function 07/06/19 Range/Units 03:05 Total Bilirubin 1.2 H (0.3-1.0) mg/dL AST 29 (13-39) Units/L ALT 23 (7-52) Units/L Alkaline Phosphatase 46 (34-104) Units/L Albumin 3.0 L (3.5-5.7) g/dL - ABG Interpretation ABG results: ABG ABG pH 7.33 pH Units (7.32-7.45) 07/06/19 04:15 ABG pCO2 47 mmHg (35-45) H 07/06/19 04:15 ABG pO2 88 mmHg (85-104) 07/06/19 04:15 ABG O2 Saturation 96 % (95-98) 07/06/19 04:15 PT/INR, D-dimer PT 12.1 Seconds (9.4-12.1) 07/03/19 11:00 - VTE Documentation of Mechanical Device: Intermittent pneumatic compression device Consult Discharge Plan - Plan Referrals: NONE,PCP [Primary Care Provider] - (3) Pneumonia Qualifiers: Pneumonia type: aspiration pneumonia Aspiration pneumonia type: unspecified Laterality: left Lung location: lower lobe of lung Qualified Code(s): J69.0 - Pneumonitis due to inhalation of food and vomit
[2019-07-06] MEDS: *HR* LORazepam 2 MG/ML VIAL IVP PRN ×3 (17:56→23:56)
[2019-07-06] MEDS ORDERED: Piperacillin/Tazobactam 3.375 GM in 0.9 % Sodium Chloride Mini Bag 100 ML IVPB SCH (23:00)
[2019-07-07] MEDS: Piperacillin/Tazobactam 3.375 GM in 0.9 % Sodium Chloride Mini Bag 100 ML IVPB SCH ×2 (01:27→07:53)
[2019-07-07] MEDS: Dexmedetomidine HCl 400 MCG/100 ML MLS IVC SCH ×5 (01:27→21:33)
[2019-07-07] MEDS: Ipratropium/Albuterol Neb 3 ML IH SCH ×6 (03:54→23:17)
[2019-07-07] MEDS: Ringers Solution, Lactated 1,000 ML IVC SCH ×2 (05:27→19:41)
[2019-07-07] MEDS: *HR* Heparin 5,000 UNIT/ML VIAL SQ SCH ×2 (05:27→17:21)
[2019-07-07] MEDS: Pantoprazole 40 MG VIAL IVP SCH (07:53)
[2019-07-07] MEDS: *HR* LORazepam 2 MG/ML VIAL IVP PRN (07:57)
[2019-07-07 10:13] LABS: Basophils % 0.3 %; Eosinophils # 0.4 K/mcL (0.0-0.6); Eosinophils % 4.4 %; Hematocrit 42.6 % (37.5-50.1); Hemoglobin 13.7 g/dL (12.9-16.9); Immature Granulocytes % 0.4 % (0-4); Lymphocytes # 1.5 K/mcL (0.6-4.6); Lymphocytes % 15.4 %; Mean Corpuscular HGB Conc 32.2 g/dL (31.6-35.5); Mean Corpuscular Hemoglobin 30.1 pg (28.0-33.3); Mean Corpuscular Volume 93.6 fL (83.0-100.0); Mean Platelet Volume 9.9 fL (9.4-12.4); Monocytes # 0.9 K/mcL (0.0-1.3); Monocytes % 9.1 %; Neutrophils # 6.7 K/mcL (1.6-8.9); Platelet Count 229 K/mcL (140-400); Red Blood Count 4.55 M/mcL (4.19-5.50); Red Cell Distribution Width 13.2 % (11.5-14.5); Segmented Neutrophils % 70.4 %; White Blood Count 9.5 K/mcL (4.3-11.1)
[2019-07-07 10:29] LABS: BUN/Creatinine Ratio 15 (6-26); Blood Urea Nitrogen 14 mg/dL (6-20); Calcium 8.7 mg/dL (8.6-10.3); Carbon Dioxide 27 mEq/L (23-29); Chloride 110 mEq/L (98-107); Glucose 126 mg/dL (70-105); Osmolality,Calculated 304 (280-300); Potassium 3.8 mEq/L (3.5-5.1); Sodium 146 mEq/L (136-145); eGFR For African Americans > 60 (> 60); eGFR For Non-African Americans > 60 (> 60)
--- NOTE | 2019-07-07 11:07 | Infectious Disease Progress No ---
ID Progress Note Date of Encounter: 07/07/19 Time of Encounter: 10:25 - Subjective Subjective: Patient seen and examined. No acute events noted overnight. Extubated 07/06/19. Awakens to verbal stimuli and follows commands. Denies fevers, chills, or rigors. Denies chest pain. Reports some shortness of breath or cough. Denies nausea, vomiting, or diarrhea. States he doesn't know the last time he had a BM. Complains of some abdominal discomfort. Denies oral thrush or skin rashes. Denies back or joint pain. - Objective CBC & Chem 7: 07/07/19 09:37 07/07/19 09:37 - Line Documentation Line Documentation: Richard Catheter - Exam Vitals: Temp Pulse Resp BP Pulse Ox 98.2 F 68 19 118/76 93 07/07/19 07:49 07/07/19 07:49 07/07/19 07:49 07/07/19 07:49 07/07/19 07:49 Exam: Head: Atraumatic, normal inspection, normocephalic. Eye: PERRLA, but sluggish. No scleral icterus noted. No subconjunctival hemorrhage noted. ENT: Mucous membranes moist. No odontogenic infection noted. Neck: Normal inspection, no meningismus. Respiratory: Clear to auscultation. No rales, respiratory distress, rhonchi, or wheezes noted. Cardiovascular: Regular rate and rhythm, S1 and S2 audible. No murmurs, rubs, or gallops. GI: Soft, distended, normal bowel sounds. Richard catheter draining dark cloudy yellow urine. Extremities: No joint swelling, pedal edema, or tenderness noted. Multiple superficial scabbed lesions noted bilateral lower extremities in various stages of healing. No surrounding erythema, warmth, tenderness, or fluctuance noted. Neurological: Opens eyes to verbal stimuli. Follows commands. Oriented x 3. Psychiatric: Calm, sedated. Skin: Dry, intact, warm. Normal color. No rashes. No endocarditis stigmata noted. - Assessment and Plan (1) SIRS (systemic inflammatory response syndrome) Current Visit: Yes Status: Acute The patient had three SIRS criteria with altered mental status at outside hospital. Redeveloped leukocytosis and fever. Source: Aspiration PNA +/- other. White blood cell count not checked this morning. Afebrile overnight. Blood cultures drawn 07/03/19 are NGTD x 2 sets. SNOMED Code(s): 232533617 (2) Pneumonia Current Visit: Yes Status: Acute CXR showed a left pleural effusion with left basilar consolidation. Causative organism: S. pneumoniae and MSSA. Aspiration on the differential given the patient's recent AMS. MRSA screen positive. RIP negative. Currently on Vanc and Zosyn. Qualifiers: Pneumonia type: aspiration pneumonia Aspiration pneumonia type: unspecified Laterality: left Lung location: lower lobe of lung Qualified Code(s): J69.0 - Pneumonitis due to inhalation of food and vomit SNOMED Code(s): 393391765 (3) Acute encephalopathy Current Visit: Yes Status: Acute Etiology: Substance abuse vs. other. CT head negative. UDS positive for amphetamines, benzos, and suboxone. Status post LP. No pleocytosis. Gram stain negative and culture is no growth. HSV and VZV PCR pending. On precedex gtt, but awakens to verbal stimuli and follows commands and appears appropriate. Neurology consulted and following. SNOMED Code(s): 63233136, 049717174 (4) Polysubstance abuse Current Visit: Yes Status: Acute UDS positive for benzos, amphetamines, and suboxone. Hepatitis C positive. Hepatitis B negative. HIV nonreactive. SNOMED Code(s): 709012417 (5) Hepatitis C antibody positive in blood Current Visit: Yes Status: Acute Likely secondary to IVDU. Outpatient GI referral. SNOMED Code(s): 550010262 (6) Constipation Current Visit: Yes Status: Acute No BM since admission. Bowel regimen per the primary team. Qualifiers: Constipation type: unspecified constipation type Qualified Code(s): K59.00 - Constipation, unspecified SNOMED Code(s): 52622536 - Recommendations Recommendations: Await blood cultures to finalize. Await CSF PCR studies. CT head, chest, abdomen, and pelvis pending completion. Contact precautions per hospital policy. Discontinue Vanc and Zosyn. Start nafcillin 2 grams IV Q4H. Start flagyl 500mg PO TID. Duration of treatment depends on the clinical picture. Monitor renal function and for drug toxicity and dose-adjust antibiotics. - VTE Documentation of Mechanical Device: Intermittent pneumatic compression device Consult Discharge Plan - Plan Referrals: NONE,PCP [Primary Care Provider] -
[2019-07-07] MEDS: Haloperidol Lactate 5 MG/ML VIAL IVP PRN ×2 (11:13→15:12)
--- NOTE | 2019-07-07 11:23 | Internal Med Progress Note ---
Hospitalist Progress Note - Encounter Date of Encounter: 07/07/19 Time of Encounter: 09:10 - Subjective Interval History: Patient was seen this morning, he looked somnolent and sleepy. No evidence overnight. - Exam Vitals: Temp Pulse Resp BP Pulse Ox 98.2 F 68 15 118/76 94 07/07/19 07:49 07/07/19 07:49 07/07/19 11:16 07/07/19 07:49 07/07/19 11:16 Exam: General: Sleepy, arousable, agitated at times HEENT: no icterus, neck supple, dry mucosa Chest: coarse breath sounds with rare wheezes, and basilar crackles; RRR Abdomen: soft, NT, ND, no HSMG, + BS Ext: no CCE, no calf swelling Neuro: A&Ox2; moves all four extremities Skin: warm and dry - Assessment and Plan (1) Acute encephalopathy Current Visit: Yes Status: Acute (2) Acute respiratory failure with hypoxia Current Visit: Yes Status: Acute (3) Hepatitis C antibody positive in blood Current Visit: Yes Status: Acute (4) Non-ST elevation [place] (NSTEMI) Current Visit: Yes Status: Resolved (5) Polysubstance abuse Current Visit: Yes Status: Acute (6) IVDU (intravenous drug user) Current Visit: Yes Status: Chronic (7) Pneumonia Current Visit: Yes Status: Acute (8) DVT prophylaxis Current Visit: Yes Status: Acute - Summary of Assessment and Plan Summary of Assessment and Plan: 49 uo male with history of IV drug abuse who was managed in the ICU for acute encephalopathy. Symptoms are managed as following: Acute encephalopathy with delirium: Septic versus toxic. On Precedex drip, stop Ativan and switched to Haldol for delirium. CSF analysis is negative still. Sepsis: from underlying pneumonia. Sputum cultures are positive for Streptococcus pneumonia and Staphylococcus aureus. MRSA is + Leukocytosis resolved. Patient is afebrile >24H, telemetry stable. continue vancomy steve/Zosyn. ID on board. Pending by CT scan suggested by Id. Echo is negative for vegetations. Acute hypoxic respiratory failure: 2/2 above, oo 3L now. NSTEMI: TYPE II event, cardiology is following. No further intervention. Hepatitis C infection: Will require outpatient GI follow-up for treatment. 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 DVT ppx: SC heparin - Time Spent with Patient Total time spent is greater than 50% in coordination of care (as documented) at patient's floor/unit and/or counseling patient: Greater than 35 minutes Plan of Care Discussed with: nurse Internal Medicine: Result - Labs CBC & Chem 7: 07/07/19 09:37 07/07/19 09:37 Labs: Short CBC 07/07/19 Range/Units 09:37 WBC 9.5 (4.3-11.1) K/mcL Hgb 13.7 (12.9-16.9) g/dL Hct 42.6 (37.5-50.1) % Plt Count 229 (140-400) K/mcL Neutrophils # 6.7 (1.6-8.9) K/mcL BMP 07/07/19 09:37 Sodium 146 H Potassium 3.8 Chloride 110 H Carbon Dioxide 27 BUN 14 Creatinine 0.91 Glucose 126 H Calcium 8.7 - ABG Interpretation ABG results: ABG ABG pH 7.33 pH Units (7.32-7.45) 07/06/19 04:15 ABG pCO2 47 mmHg (35-45) H 07/06/19 04:15 ABG pO2 88 mmHg (85-104) 07/06/19 04:15 ABG O2 Saturation 96 % (95-98) 07/06/19 04:15 PT/INR, D-dimer PT 12.1 Seconds (9.4-12.1) 07/03/19 11:00 - VTE Documentation of Mechanical Device: Intermittent pneumatic compression device Consult Discharge Plan - Plan Referrals: NONE,PCP [Primary Care Provider] - (7) Pneumonia Qualifiers: Pneumonia type: aspiration pneumonia Aspiration pneumonia type: unspecified Laterality: left Lung location: lower lobe of lung Qualified Code(s): J69.0 - Pneumonitis due to inhalation of food and vomit
[2019-07-07] MEDS: metroNIDAZOLE 500 MG TABLET PO SCH ×3 (15:12→21:57)
[2019-07-07] MEDS ORDERED: Aminoglycoside Consult 1 EACH MC ONE (15:14)
[2019-07-07] MEDS: Nafcillin 2,000 MG in 0.9 % Sodium Chloride Mini Bag 100 ML IVPB SCH ×3 (15:19→23:23)
[2019-07-07] MEDS: Haloperidol Lactate 5 MG/ML VIAL IVP SCH ×2 (17:50→23:23)
[2019-07-07] MEDS ORDERED: *HR* LORazepam 2 MG/ML VIAL IVP ONE (21:34)
[2019-07-08 01:56] LABS: Hematocrit 39.7 % (37.5-50.1); Hemoglobin 12.9 g/dL (12.9-16.9); Mean Corpuscular HGB Conc 32.5 g/dL (31.6-35.5); Mean Corpuscular Hemoglobin 30.1 pg (28.0-33.3); Mean Corpuscular Volume 92.8 fL (83.0-100.0); Platelet Count 256 K/mcL (140-400); Red Blood Count 4.28 M/mcL (4.19-5.50); Red Cell Distribution Width 12.7 % (11.5-14.5); White Blood Count 9.3 K/mcL (4.3-11.1)
[2019-07-08] MEDS: Dexmedetomidine HCl 400 MCG/100 ML MLS IVC SCH ×4 (02:04→18:35)
[2019-07-08 02:17] LABS: BUN/Creatinine Ratio 15 (6-26); Blood Urea Nitrogen 12 mg/dL (6-20); Calcium 8.5 mg/dL (8.6-10.3); Carbon Dioxide 23 mEq/L (23-29); Chloride 110 mEq/L (98-107); Glucose 110 mg/dL (70-105); Osmolality,Calculated 298 (280-300); Potassium 3.7 mEq/L (3.5-5.1); Sodium 144 mEq/L (136-145); eGFR For African Americans > 60 (> 60); eGFR For Non-African Americans > 60 (> 60)
[2019-07-08] MEDS: Nafcillin 2,000 MG in 0.9 % Sodium Chloride Mini Bag 100 ML IVPB SCH ×5 (03:25→20:03)
[2019-07-08] MEDS: Haloperidol Lactate 5 MG/ML VIAL IVP SCH ×5 (03:25→20:05)
[2019-07-08] MEDS: Ipratropium/Albuterol Neb 3 ML IH SCH ×6 (04:06→23:07)
[2019-07-08] MEDS: *HR* Heparin 5,000 UNIT/ML VIAL SQ SCH ×2 (05:38→18:21)
[2019-07-08] MEDS: Pantoprazole 40 MG VIAL IVP SCH (08:14)
[2019-07-08] MEDS: metroNIDAZOLE 500 MG TABLET PO SCH (08:15)
[2019-07-08 10:25] LABS: HCV Genotype by Sequencing 1A OR 1B
[2019-07-08 10:26] LABS: HSV 1 Glycoprotein G IgG CSF 0.7 IV (<=0.89)
[2019-07-08] MEDS: Ringers Solution, Lactated 1,000 ML IVC SCH (10:49)
--- NOTE | 2019-07-08 11:59 | Internal Med Progress Note ---
Hospitalist Progress Note - Encounter Date of Encounter: 07/08/19 Time of Encounter: 10:40 - Subjective Interval History: Patient was seen this morning. He was febrile overnight. He is somnolent and barely responsive to verbal stimuli. - Exam Vitals: Temp Pulse Resp BP Pulse Ox 99.5 F 49 19 138/92 96 07/08/19 06:58 07/08/19 10:00 07/08/19 10:00 07/08/19 10:00 07/08/19 10:00 Exam: General: Sleepy, somnolent, agitated at times HEENT: no icterus, neck supple, dry mucosa Chest: coarse breath sounds and basilar crackles; RRR Abdomen: soft, NT, ND, no HSMG, + BS Ext: no CCE, no calf swelling Neuro: A&Ox2; moves all four extremities Skin: warm and dry - Assessment and Plan (1) Acute encephalopathy Current Visit: Yes Status: Acute (2) Acute respiratory failure with hypoxia Current Visit: Yes Status: Acute (3) Hepatitis C antibody positive in blood Current Visit: Yes Status: Acute (4) Non-ST elevation [place] (NSTEMI) Current Visit: Yes Status: Resolved (5) Polysubstance abuse Current Visit: Yes Status: Acute (6) IVDU (intravenous drug user) Current Visit: Yes Status: Chronic (7) Pneumonia Current Visit: Yes Status: Acute (8) DVT prophylaxis Current Visit: Yes Status: Acute - Summary of Assessment and Plan Summary of Assessment and Plan: 49 uo male with history of IV drug abuse who was managed in the ICU for acute encephalopathy. Symptoms are managed as following: Acute encephalopathy with delirium: Septic versus toxic. On Precedex drip, stop Ativan and switched to Scheduled Haldol for delirium. CSF analysis is negative along with Cultures. On soft restraints as he attempted to Dc care through pulling bush cathater and IV access. Sepsis: from underlying pneumonia. Sputum cultures are positive for Streptococcus pneumonia and MSSA. Leukocytosis resolved. Patient was febrile yesterday night suspected due to drug induced fever (precedex), telemetry stable. On Nafacillin and flagyl. ID on board. Pending [place] CT scan suggested by Id due to restrains and agitation. Echo is negative for vegetations. Acute hypoxic respiratory failure: 2/2 above, on 3L now. NSTEMI: TYPE II event, cardiology is following. No further intervention. Hepatitis C infection: Will require outpatient GI follow-up for treatment. Polysubstance abuse: workers compensation administrator consult placed. DVT ppx: SC heparin - Time Spent with Patient Total time spent is greater than 50% in coordination of care (as documented) at patient's floor/unit and/or counseling patient: Plan of Care Discussed with: nurse Internal Medicine: Result - Labs CBC & Chem 7: 07/08/19 00:45 07/08/19 00:45 Labs: Short CBC 07/08/19 Range/Units 00:45 WBC 9.3 (4.3-11.1) K/mcL Hgb 12.9 (12.9-16.9) g/dL Hct 39.7 (37.5-50.1) % Plt Count 256 (140-400) K/mcL BMP 07/08/19 00:45 Sodium 144 Potassium 3.7 Chloride 110 H Carbon Dioxide 23 BUN 12 Creatinine 0.81 Glucose 110 H Calcium 8.5 L - ABG Interpretation ABG results: ABG ABG pH 7.33 pH Units (7.32-7.45) 07/06/19 04:15 ABG pCO2 47 mmHg (35-45) H 07/06/19 04:15 ABG pO2 88 mmHg (85-104) 07/06/19 04:15 ABG O2 Saturation 96 % (95-98) 07/06/19 04:15 PT/INR, D-dimer PT 12.1 Seconds (9.4-12.1) 07/03/19 11:00 - VTE Documentation of Mechanical Device: Intermittent pneumatic compression device Consult Discharge Plan - Plan Referrals: NONE,PCP [Primary Care Provider] - (7) Pneumonia Qualifiers: Pneumonia type: aspiration pneumonia Aspiration pneumonia type: unspecified Laterality: left Lung location: lower lobe of lung Qualified Code(s): J69.0 - Pneumonitis due to inhalation of food and vomit
[2019-07-08] MEDS: MetroNIDAZOLE 500 MG/100 ML 500 MG/100 ML BAG IVPB SCH (14:29)
[2019-07-08] MEDS: Piperacillin/Tazobactam 3.375 GM in 0.9 % Sodium Chloride Mini Bag 100 ML IVPB SCH (19:44)
[2019-07-09] MEDS: Ringers Solution, Lactated 1,000 ML IVC SCH ×2 (00:09→13:49)
[2019-07-09] MEDS: Haloperidol Lactate 5 MG/ML VIAL IVP SCH ×2 (00:10→03:54)
[2019-07-09] MEDS: MetroNIDAZOLE 500 MG/100 ML 500 MG/100 ML BAG IVPB SCH ×2 (00:12→07:53)
[2019-07-09] MEDS: Nafcillin 2,000 MG in 0.9 % Sodium Chloride Mini Bag 100 ML IVPB SCH ×4 (00:12→11:40)
[2019-07-09] MEDS: Ketorolac 15 MG/ML VIAL IVP PRN ×2 (00:48→08:10)
[2019-07-09] MEDS: Dexmedetomidine HCl 400 MCG/100 ML MLS IVC SCH ×2 (02:01→08:23)
[2019-07-09 03:20] LABS: Hematocrit 39.3 % (37.5-50.1); Mean Corpuscular HGB Conc 33.1 g/dL (31.6-35.5); Mean Corpuscular Hemoglobin 30.2 pg (28.0-33.3); Mean Corpuscular Volume 91.2 fL (83.0-100.0); Mean Platelet Volume 9.6 fL (9.4-12.4); Platelet Count 244 K/mcL (140-400); Red Blood Count 4.31 M/mcL (4.19-5.50); Red Cell Distribution Width 12.6 % (11.5-14.5); White Blood Count 8.5 K/mcL (4.3-11.1)
[2019-07-09 03:28] LABS: BUN/Creatinine Ratio 17 (6-26); Blood Urea Nitrogen 12 mg/dL (6-20); Carbon Dioxide 25 mEq/L (23-29); Chloride 106 mEq/L (98-107); Glucose 108 mg/dL (70-105); Osmolality,Calculated 294 (280-300); Potassium 3.2 mEq/L (3.5-5.1); Sodium 142 mEq/L (136-145); eGFR For African Americans > 60 (> 60); eGFR For Non-African Americans > 60 (> 60)
[2019-07-09] MEDS: Ipratropium/Albuterol Neb 3 ML IH SCH ×3 (04:28→08:51)
[2019-07-09] MEDS: *HR* Heparin 5,000 UNIT/ML VIAL SQ SCH (05:01)
[2019-07-09] MEDS ORDERED: Potassium Chloride Elixir 20 MEQ/15 ML UDC PO ONE (07:36)
[2019-07-09] MEDS ORDERED: Haloperidol Lactate 5 MG/ML VIAL IVP PRN (07:37)
[2019-07-09] MEDS: Pantoprazole 40 MG VIAL IVP SCH (07:53)
--- NOTE | 2019-07-09 10:29 | Internal Med Progress Note ---
Hospitalist Progress Note - Encounter Date of Encounter: 07/09/19 Time of Encounter: 09:30 - Subjective Interval History: Patient was seen this morning. He was completely awake, alert and oriented 3. He is requesting to leave home today. Is requesting his Bush to be removed. He denied chest pain, shortness of breath and requested breathing treatment this morning. He had no fever overnight - Exam Vitals: Temp Pulse Resp BP Pulse Ox 98.3 F 63 18 154/104 93 07/09/19 07:12 07/09/19 07:12 07/09/19 08:51 07/09/19 07:12 07/09/19 08:51 Exam: General: Patient is alert, oriented 3. No distress Head: Atraumatic, normal inspection, normocephalic. Eye: EOMI, PERRLA, no scleral icterus noted. ENT: Mucous membranes moist. Neck: Normal inspection, no meningismus. Respiratory: Scattered wheezing bilaterally Cardiovascular: Regular rate and regular rhythm, S1 and S2 audible. No murmurs, rubs, or gallops. GI: Soft, nondistended, normal bowel sounds. Extremities:No joint swelling, pedal edema, or tenderness noted. Neurological: Alert, oriented 3, no focal deficits. Psychiatric: normal affect, normal mood. Skin: Dry, intact, warm. Normal color. No rashes. - Assessment and Plan (1) Pneumonia Current Visit: Yes Status: Acute (2) Acute encephalopathy Current Visit: Yes Status: Resolved (3) Acute respiratory failure with hypoxia Current Visit: Yes Status: Resolved (4) Hepatitis C antibody positive in blood Current Visit: Yes Status: Acute (5) Non-ST elevation [place] (NSTEMI) Current Visit: Yes Status: Resolved (6) Polysubstance abuse Current Visit: Yes Status: Chronic (7) IVDU (intravenous drug user) Current Visit: Yes Status: Chronic (8) DVT prophylaxis Current Visit: Yes Status: Acute - Summary of Assessment and Plan Summary of Assessment and Plan: 49 uo male with history of IV drug abuse who was managed in the ICU for acute encephalopathy. Symptoms are managed as following: Acute encephalopathy with delirium: Resolved, Septic versus toxic. DC Precedex drip, switched to PRN Haldol for delirium. CSF analysis is negative along with Cultures. DC soft restraints and bush cathater. Sepsis: from underlying pneumonia . Sputum cultures are positive for Streptococcus pneumonia and MSSA and aspiration. Leukocytosis resolved. Patient is afebrile. His fever would be due to drug induced fever (precedex). On Nafacillin and flagyl. ID on board. DC [place] CT scan GIVEN HIS CLINICAL IMPROVEMENT. Echo is negative for vegetations. Acute hypoxic respiratory failure: 2/2 above, on RA now. Continue breathing tx NSTEMI: TYPE II event, cardiology is following. No further intervention. Hepatitis C infection: Will require outpatient GI follow-up for treatment. Polysubstance abuse: auto salvage worker consult placed. DVT ppx: SC heparin - Time Spent with Patient Total time spent is greater than 50% in coordination of care (as documented) at patient's floor/unit and/or counseling patient: Plan of Care Discussed with: patient Internal Medicine: Result - Labs CBC & Chem 7: 07/09/19 02:52 07/09/19 02:52 Labs: Short CBC 07/09/19 Range/Units 02:52 WBC 8.5 (4.3-11.1) K/mcL Hgb 13.0 (12.9-16.9) g/dL Hct 39.3 (37.5-50.1) % Plt Count 244 (140-400) K/mcL BMP 07/09/19 02:52 Sodium 142 Potassium 3.2 L Chloride 106 Carbon Dioxide 25 BUN 12 Creatinine 0.70 Glucose 108 H Calcium 8.0 L - ABG Interpretation ABG results: ABG ABG pH 7.33 pH Units (7.32-7.45) 07/06/19 04:15 ABG pCO2 47 mmHg (35-45) H 07/06/19 04:15 ABG pO2 88 mmHg (85-104) 07/06/19 04:15 ABG O2 Saturation 96 % (95-98) 07/06/19 04:15 PT/INR, D-dimer PT 12.1 Seconds (9.4-12.1) 07/03/19 11:00 - VTE Documentation of Mechanical Device: Intermittent pneumatic compression device Consult Discharge Plan - Plan Referrals: NONE,PCP [Primary Care Provider] - (1) Pneumonia Qualifiers: Pneumonia type: aspiration pneumonia Aspiration pneumonia type: unspecified Laterality: left Lung location: lower lobe of lung Qualified Code(s): J69.0 - Pneumonitis due to inhalation of food and vomit
[2019-07-09 12:01] VITALS: BP 140/90
--- NOTE | 2019-07-09 15:14 | Discharge Summary ---
- NOTES TO OUTPATIENT PROVIDER Notes to Outpatient Provider: Patient was admitted with overdose. Was initiall intubated and extubated. He was treated for PNA with IV ABx. He decided to leave AMA. He was found to have hepatitis C infection for which he needs to follow with GI for treatment as outpatient. Orders not resulted at time of discharge: Pending orders 07/04/19 12:20 HSV 1 Glycoprotein G IgG CSF Routine Varicella-Zoster Virus PCR Routine 07/05/19 09:40 Culture,Blood [] Stat Date of Encounter: 07/09/19 Time of Encounter: 10:20 - Discharge Diagnosis (1) Pneumonia Priority: Primary Status: Acute Qualifiers: Pneumonia type: aspiration pneumonia Aspiration pneumonia type: unspecified Laterality: left Lung location: lower lobe of lung Qualified Code(s): J69.0 - Pneumonitis due to inhalation of food and vomit (2) Acute encephalopathy Priority: Secondary Status: Resolved (3) Acute respiratory failure with hypoxia Priority: Secondary Status: Resolved (4) Hepatitis C antibody positive in blood Priority: Secondary Status: Acute (5) Non-ST elevation [place] (NSTEMI) Priority: Secondary Status: Resolved (6) Polysubstance abuse Priority: Secondary Status: Chronic (7) IVDU (intravenous drug user) Priority: Secondary Status: Chronic (8) DVT prophylaxis Priority: Secondary Status: Acute Hospital course: Mr. VITALE is a 49 year old male with history of IV drug abuse who came to the hospital for drug overdose. He was intubated and then extubated for acute hypoxic respiratory failure. His sputum culture grew MSSA and strep pneumonia. His course was complicated by fever which was related to drug-induced fever being on Precedex drip. Today, patient was alert, awake and oriented 3. He was on room air. He decided to leave AGAINST MEDICAL ADVICE. Patient has full mental capacity to make his own decision and he understands the risk of leaving including worsening infection, fall and possible . Despite, he decided to leave AGAINST MEDICAL ADVICE. Discharge discussed with: patient - Time Spent with Patient Total time spent providing and/or coordinating discharge services: 35 minutes - Discharge Medications Prescriptions: New Sulfamethoxazole/Trimeth DS [Bactrim DS] 1 each PO BID 5 Days #10 tablet Home Medications: Sulfamethoxazole/Trimeth DS [Bactrim DS] 1 each PO BID 5 Days #10 tablet 07/09/19 [Rx] Allergies/Adverse Reactions: Allergy/AdvReac Type Severity Reaction Status Date / Time No Known Allergies Allergy Verified 07/03/19 10:28 Date of admission: 07/03/19 10:16 Primary care physician: PCP NONE Consults: 07/03/19 11:22 Consult to Cardiology [CONS] Routine Comment: Consulting Provider: [facility] Reason for Consult: NSTEMI; IVDA Time Notified: 11:23 Call Completed: Yes Consult to Pulmonology [CONS] Routine Consulting Provider: [facility] Reason for Consult: vent mangement Call Completed: No 07/03/19 11:24 Consult to Infectious Diseases [CONS] Routine Consulting Provider: [facility] Reason for Consult: possible meningitis Call Completed: Yes 07/03/19 12:25 Consult to Neurology [CONS] Routine Consulting Provider: [facility] Reason for Consult: ? need for LP; ? meningitis Call Completed: Yes 07/06/19 11:51 Consult to Nutrition [CONS] Routine Comment: Consulting Provider: NUTRITION Reason for Dietary Consult: Tube Feed Start & Manage - Constitutional Vitals: Temp Pulse Resp BP Pulse Ox 97.7 F 85 18 140/90 96 07/09/19 11:59 07/09/19 11:59 07/09/19 11:59 07/09/19 11:59 07/09/19 11:59 Exam: General: Patient is alert, oriented 3. No distress Head: Atraumatic, normal inspection, normocephalic. Eye: EOMI, PERRLA, no scleral icterus noted. ENT: Mucous membranes moist. Neck: Normal inspection, no meningismus. Respiratory: Scattered wheezing bilaterally Cardiovascular: Regular rate and regular rhythm, S1 and S2 audible. No murmurs, rubs, or gallops. GI: Soft, nondistended, normal bowel sounds. Extremities:No joint swelling, pedal edema, or tenderness noted. Neurological: Alert, oriented 3, no focal deficits. Psychiatric: normal affect, normal mood. Skin: Dry, intact, warm. Normal color. No rashes. - Patient Status Disposition: Left Against Medical Advice Condition: Fair Functional capacity at discharge: independent ambulation Overall status at discharge: patient is not back to baseline - Discharge Instructions Follow Up With: NONE,PCP [Primary Care Provider] - - Diet and Activity Activity: increase activity as tolerated Diet: regular diet - VTE Documentation of Mechanical Device: Intermittent pneumatic compression device
[2019-07-09] MEDS ORDERED: metroNIDAZOLE 500 MG TABLET PO SCH (16:00)
== END 2019-07-09 15:15 | disposition left against medical advice (07) | DRG 720 ==
LOC: SUATTDRO 10:16 → ICNU 10:16 → 2NNU 07-06 16:42
PROVIDERS: ADMIT Pediatrics; ATTEND Internal Medicine